=== PATIENT | male | born 1980 | race Two or more races ===

== ENCOUNTER 2024-08-08 19:48 | Inpatient (IN) | payer MEDICAID, OTHER ==
[~2024-08-08] VITALS: Ht 177.8 cm; Wt 338.0 kg
[2024-08-08] MEDS: SODIUM CHLORIDE 0.9% 1,000 ML IV ONE ×2 (21:00→23:48)
[2024-08-08 21:10] VITALS: PULSE 121; RESP 25; O2SAT 96
[2024-08-08 22:02] LABS: Basophils # (auto) 0 10 ^3/uL (0-0.2); Basophils % (auto) 0.2 % (0.0-2.0); Eosinophils # (auto) 0 10 ^3/uL (0-0.8); Hematocrit 40.6 % (41.0-53.0); Hemoglobin 13.1 g/dL (13.5-17.5); Lymphocytes # (auto) 0.3 10 ^3/uL (0.4-5.4); Mean Corpuscular Hemoglobin 24.4 pg (28.0-32.0); Mean Corpuscular Hgb Conc. 32.3 g/dL (32.0-36.0); Mean Corpuscular Volume 75.6 fL (80.0-100.0); Monocytes # (auto) 0.3 10 ^3/uL (0-1.3); Monocytes % (auto) 2.7 % (0.0-12.0); Neutrophils # (auto) 10.2 10 ^3/uL (1.6-8.6); Neutrophils % (auto) 94.1 % (37.0-80.0); Nucleated Red Blood Cells % 0.1 %; Platelet Count (auto) 163 10^3/uL (140-450); Red Blood Cells 5.37 10^6/uL (4.5-5.90); Red Cell Distribution Width 18.2 % (11.8-14.3); White Blood Cell 10.8 10^3/uL (4.4-10.8)
[2024-08-08 22:28] LABS: Urine Bacteria None Seen /hpf (None Seen)
[2024-08-08 22:37] LABS: Alanine Aminotransferase 35 U/L (7-40); Alkaline Phosphatase 65 U/L (46-116); Anion Gap 10 (5-15); BUN/Creatinine Ratio 9.3 (10.0-20.0); Blood Urea Nitrogen 11 mg/dL (9-23); Calcium 8.9 mg/dL (8.7-10.4); Carbon Dioxide 28 mmol/L (20-31); Total Protein 6.5 g/dL (5.7-8.2)
[2024-08-08 22:38] LABS: Bilirubin, Total 0.7 mg/dL (0.2-1.0)
[2024-08-08 22:40] LABS: Urine Blood 1+ /uL (Negative); Urine Clarity Clear (Clear); Urine Color Light-Yellow (Yellow); Urine Protein, UAD Negative (Negative); Urine Specific Gravity 1.014 (1.001-1.035); Urine Squamous Epithelial Cell None Seen /hpf (<5); Urine Urobilinogen Normal (Negative); Urine WBC 1 /HPF (0-3); Urine pH 5.5 (5.0-9.0)
[2024-08-08 22:42] LABS: Aspartate Aminotransferase 42 U/L (13-40); Chloride 94 mmol/L (98-107); Glucose 221 mg/dL (74-106); Potassium 3.4 mmol/L (3.5-5.1); Sodium 132 mmol/L (136-145)
[2024-08-08] MEDS: MORPHINE SULFATE 4 MG/ML SYR/VIAL IV ONE ×2 (22:46→23:48)
[2024-08-08] MEDS: ONDANSETRON HCL 4 MG/2 ML VIAL IV ONE (22:48)
[2024-08-08 23:05] LABS: Lactic Acid w/Reflex 3.7 mmol/L (0.4-2.0)
[2024-08-08] MEDS: MORPHINE SULFATE 4 MG/ML SYR/VIAL ONE (23:47)
--- NOTE | 2024-08-08 23:48 | ED.PDOC ---
Musculoskeletal HPI Comments 43-year-old male brought in by EMS. Patient complaining of right lower leg pain. Patient reports a history of cellulitis. History of lymphedema. States he was hospitalized for cellulitis two years ago. Patient does report a extensive history of allergies to medications. Patient reports intense pain over the last 2-3 days. Chief Complaint: Lower Extremity Time Seen by MD: 20:23 Reviewed Notes: Nurses Notes Allergies: Coded Allergies: Piperacillin (Verified Allergy, Unknown, 08/08/24) Sulfamethoxazole w/Trimethoprim (Verified Allergy, Unknown, 08/08/24) Tazobactam (Verified Allergy, Unknown, 08/08/24) Vancomycin (Verified Allergy, Unknown, 08/08/24) Information Source: Patient Mode of Arrival: EMS Location: Left Extremity Location: Leg Past Medical History PAST MEDICAL HISTORY: Denies Surgical History: Denies all surgeries Constitutional: denies: chills, diaphoresis, fatigue, fever, malaise, sweats, weakness, others EENTM: denies: blurred vision, double vision, ear bleeding, ear discharge, ear drainage, ear pain, ear ringing, eye pain, eye redness, hearing loss, mouth pain, mouth swelling, nasal discharge, nose bleeding, nose congestion, nose pain, photophobia, tearing, throat pain, throat swelling, voice changes, others Respiratory: denies: cough, hemoptysis, orthopnea, SOB at rest, shortness of breath, SOB with excertion, stridor, wheezing, others Cardiovascular: denies: chest pain, dizzy spells, diaphoresis, Dyspnea on exertion, edema, irregular heart beat, left arm pain, lightheadedness, palpitations, PND, syncope, others Gastrointestinal: denies: abdomen distended, abdominal pain, blood streaked bowels, constipated, diarrhea, dysphagia, difficulty swallowing, hematemesis, melena, nausea, poor appetite, poor fluid intake, rectal bleeding, rectal pain, vomiting, others Genitourinary: denies: burning, dysuria, flank pain, frequency, hematuria, incontinence, penile discharge, penile sore, pain, testicle pain, testicle swelling, urgency, others Neurological: denies: dizziness, fainting, headache, left sided numbness, left sided weakness, numbness, paresthesia, pre-existing deficit, right sided numbness, right sided weakness, seizure, speech problems, tingling, tremors, weakness, others Musculoskeletal: reports: muscle pain, muscle stiffness; denies: back pain, gout, joint pain, joint swelling, neck pain, others Integumetry: reports: wounds; denies: bruises, change in color, change in hair/nails, dryness, laceration, lesions, lumps, rash, others Allergic/Immunocompromised: denies: Difficulty Healing, Frequent Infections, Hives, Itching, others Hematologic/Lymphatic: denies: anemia, blood clots, easy bleeding, easy bruising, swollen glands, others Endocrine: denies: excessive hunger, excessive sweating, excessive thirst, excessive urination, flushing, intolerance to cold, intolerance to heat, unexplained weight gain, unexplained weight loss, others Physical Exam General Appearance: Obese, Severe Distress HEENT: Normal ENT Inspection, Pharynx Normal, TMs Normal Neck: Full Range of Motion, Non-Tender, Normal, Normal Inspection Respiratory: Chest Non-Tender, Lungs Clear, No Accessory Muscle Use, No Respiratory Distress, Normal Breath Sounds Cardiovascular: No Edema, No JVD, No Murmur, No Gallop, Normal Peripheral Pulses, Regular Rate/Rhythm Breast Exam: Deferred Gastrointestinal: No Organomegaly, Non Tender, No Pulsatile Mass, Normal Bowel Sounds, Soft Genitalia: Deferred Pelvic: Deferred Rectal: Deferred Extremities: No calf tenderness, Normal capillary refill, Normal inspection, Normal range of motion, Non-tender, No pedal edema Musculoskeletal : Apperance: Normal Neurologic: Alert, 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 Was a procedure done?: No Differential Diagnosis EXT Differential Diagnosis: Cellulitis, CHF, Deep Vein Thrombosis, Compartment Syndrome, Neurovascular injury X-Ray, Labs, Meds, VS Vital Signs Date Time Temp Pulse Resp B/P (MAP) Pulse Ox O2 Delivery O2 Flow Rate FiO2 08/08/24 22:46 122 24 135/45 08/08/24 21:10 96 Nasal Cannula* 4 36 08/08/24 20:09 99.3 120 20 110/73 (85) 95 Lab Test 2/25/25 22:28 08/08/24 21:40 Range/Units Urine Color Light-yellow Yellow Urine Clarity Clear Clear Urine pH 5.5 5.0-9.0 Urine Specific [place] 1.014 1.001-1.035 Urine Protein Negative Negative Urine Ketones Negative Negative Urine Blood 1+ H Negative /uL Urine Nitrite Negative Negative Urine Bilirubin Negative Negative Urine Urobilinogen Normal Negative mg/dL Urine Leukocyte Esterase Negative Negative /uL Urine RBC 1 0 - 3 /hpf Urine Microscopic WBC 1 0-3 /HPF Urine Squamous Epithelial Cells None seen <5 /hpf Urine Bacteria None seen None Seen /hpf Urine Glucose Normal Normal mg/dL White Blood Count 10.8 4.4-10.8 10^3/uL Red Blood Count 5.37 4.5-5.90 10^6/uL Hemoglobin 13.1 L 13.5-17.5 g/dL Hematocrit 40.6 L 41.0-53.0 % Mean Corpuscular Volume 75.6 L 80.0-100.0 fL Mean Corpuscular Hemoglobin 24.4 L 28.0-32.0 pg Mean Corpuscular Hemoglobin Concent 32.3 32.0-36.0 g/dL Red Cell Distribution Width 18.2 H 11.8-14.3 % Platelet Count 163 140-450 10^3/uL Mean Platelet Volume 8.2 6.9-10.8 fL Neutrophils (%) (Auto) 94.1 H 37.0-80.0 % Lymphocytes (%) (Auto) 3.0 L 10.0-50.0 % Monocytes (%) (Auto) 2.7 0.0-12.0 % Eosinophils (%) (Auto) 0.0 0.0-7.0 % Basophils (%) (Auto) 0.2 0.0-2.0 % Neutrophils # (Auto) 10.2 H 1.6-8.6 10 ^3/uL Lymphocytes # (Auto) 0.3 L 0.4-5.4 10 ^3/uL Monocytes # (Auto) 0.3 0-1.3 10 ^3/uL Eosinophils # (Auto) 0 0-0.8 10 ^3/uL Basophils # (Auto) 0 0-0.2 10 ^3/uL Nucleated Red Blood Cells 0.1 % Sodium Level 132 L 136-145 mmol/L Potassium Level 3.4 L 3.5-5.1 mmol/L Chloride Level 94 L 98-107 mmol/L Carbon Dioxide Level 28 20-31 mmol/L Anion Gap 10 5-15 Blood Urea Nitrogen 11 9-23 mg/dL Creatinine 1.18 0.700-1.30 mg/dL Glomerular Filtration Rate Calc 79 >90 mL/min BUN/Creatinine Ratio 9.3 L 10.0-20.0 Serum Glucose 221 H 74-106 mg/dL Lactic Acid Level 3.7 *H 0.4-2.0 mmol/L Calcium Level 8.9 8.7-10.4 mg/dL Total Bilirubin 0.7 0.2-1.0 mg/dL Aspartate Amino Transferase (AST) 42 H 13-40 U/L Alanine Aminotransferase (ALT) 35 7-40 U/L Alkaline Phosphatase 65 46-116 U/L Total Protein 6.5 5.7-8.2 g/dL Albumin 4.0 3.2-4.8 g/dL Current Medications Medications (Trade) Dose Ordered Sig/Nadia Route Start Time Stop Time Status Last Admin Sodium Chloride 1,000 ml @ 1,000 mls/hr Q1H ONCE IV 08/08/24 21:00 08/08/24 21:59 DC 08/08/24 21:00 Morphine Sulfate 4 mg ONCE ONCE IV 08/08/24 22:30 08/08/24 22:31 DC 08/08/24 22:46 Ondansetron HCl (Zofran) 4 mg ONCE ONCE IV 08/08/24 22:30 08/08/24 22:31 DC 08/08/24 22:48 X-Ray, Labs, Meds, VS Comment Patient will be admitted for IV antibiotic treatment for sepsis and cellulitis of the right lower extremity. Patient will be started on Cipro Patient given 2 L IV bolus Laboratory: Labs reviewed and interpreted by this provider. Patient has prior medical visits reviewed. Med reconciliation performed Vital signs reviewed Time of 1ST Reevaluation: 23:48 Reevaluation 1ST: Unchanged Patient Education/Counseling: Diagnosis, Treatment Family Education/Counseling: Diagnosis Departure 1 Departure Time of Disposition: 23:47 Impression: Primary Impression: Cellulitis of right leg Additional Impression: Sepsis Qualified Codes: A41.9 - Sepsis, unspecified organism Disposition: ADMITTED INPATIENT Condition: Guarded Critical Care Note Critical Care Time?: No Stability Stability form required: No Heart Score Heart Score: Heart Score Response (Comments) Value History N/A 0 EKG N/A 0 Age N/A 0 Risk Factors N/A 0 Troponin N/A 0 Total 0 RENETTA CARL Aug 08, 2024 23:48
[2024-08-09] MEDS: CIPROFLOXACIN 400MG/200ML 200 ML IV ONE (00:03)
[2024-08-09] MEDS: SODIUM CHLORIDE 0.9% 1,000 ML IV ONE ×2 (00:45→09:45)
[2024-08-09] MEDS: SODIUM CHLORIDE 0.9% 2,200 ML IV ONE (00:45)
[2024-08-09] MEDS: MEROPENEM 1GM IVPB 50 ML IV ONE (01:00)
--- NOTE | 2024-08-09 02:16 | DVH ---
Clinical History: rule out dvt Comparison: None Technique: Duplex Doppler evaluation of the deep venous system of the left lower extremity from the common femor al vein to the popliteal vein including color Doppler and spectral/pulsed waveform analysis was perfo rmed. Findings: The common femoral vein demonstrates appropriate compressibility and waveform variability. There is compressibility/patency of the great saphenous vein at the proximal thigh. The femoral vein demonstrates appropriate compressibility and waveform variability. The deep femoral vein demonstrates appropriate compressibility and waveform variability. The popliteal vein demonstrates appropriate compressibility and waveform variability. There is normal compressibility at the tibioperoneal trunk. In the right popliteal fossa there is an elongated complex avascular hypoechoic lesion measuring 4.1 x 5.6 x 1.5 cm compatible with a Pickett's cyst. Subcutaneous edema is noted in the calf area. Impression: 1. No left deep venous thrombosis. 2. If clinical concern/symptoms persist or worsen, short-interval follow-up study is suggested. 3. 4.1 x 5.6 x 1.5 cm pickett's cyst in the right popliteal fossa.
[2024-08-09] MEDS: MORPHINE SULFATE INJ 2 MG/ml SYRG IV PRN ×2 (02:40→12:05)
[2024-08-09] MEDS: DAPTOMYCIN IV SCH ×2 (03:00→14:21)
[2024-08-09] MEDS: SODIUM CHL 0.9% IV SCH ×2 (03:00→14:21)
[2024-08-09] MEDS: MORPHINE SULFATE INJ 2 MG/ml SYRG IV ONE (05:28)
[2024-08-09] MEDS: ONDANSETRON HCL 4 MG/2 ML VIAL ONE (05:29)
[2024-08-09] MEDS ORDERED: ACETAMINOPHEN 325 MG TAB PO PRN (07:45)
[2024-08-09] MEDS ORDERED: DOCUSATE SOD 100 MG CAP PO PRN (07:45)
--- NOTE | 2024-08-09 08:10 | DVHHPRES ---
History of Present Illness Resident Creating Document: TIERNEY JACOBSON RESIDENT Reason for Visit: sepsis History of Present Illness A 43-year-old male with a history of lymphedema for 12 years, reportedly due to a chronic infection, poor historian . He experiences recurrent episodes of cellulitis, occurring 2 to 4 times per year. He has an extensive history of medication allergies and reports intense pain in the affected area. He also has a history of diabetes, with a blood sugar level of 200 on presentation, though he is not on any home medications for it. Past Medical History: Lymphedema (12 years) Recurrent cellulitis (24 episodes per year) Diabetes mellitus Medications: None reported for diabetes Allergies: Extensive medication allergies Review of Systems Constitutional: No: Fever, Chills, Sweats, Weakness, Malaise, Other Eyes: No: Pain, Vision change, Conjunctivae inflammation, Eyelid inflammation, Other, Redness ENT: No: Ear pain, Ear discharge, Nose pain, Nose discharge, Nose congestion, Mouth pain, Mouth swelling, Throat pain, Throat swelling, Other Respiratory: No: Cough, Dry, Shortness of breath, SOB with excertion, Wheezing, Hemoptysis, Pleuritic Pain, Sputum, Wheezing, Other Cardiovascular: No: Chest Pain, Palpitations, Orthopnea, Paroxysmal Noc. Dyspnea, Edema, Lt Headedness, Other Gastrointestinal: No: Nausea, Vomiting, Abdominal Pain, Diarrhea, Constipation, Melena, Hematochezia, Other Genitourinary: No Dysuria, No Frequency, No Incontinence, No Hematuria, No Retention, No Other Musculoskeletal: leg pain; No: other, neck pain, shoulder pain, arm pain, back pain, hand pain, foot pain Skin: Lesions; No: Rash, Jaundice, Bruising, Other Neurological: No: Weakness, Numbness, Incoordination, Change in speech, Confusion, Seizures, Other Allergies: Coded Allergies: Piperacillin (Verified Allergy, Unknown, 08/08/24) Sulfamethoxazole w/Trimethoprim (Verified Allergy, Unknown, 08/08/24) Tazobactam (Verified Allergy, Unknown, 08/08/24) Vancomycin (Verified Allergy, Unknown, 08/08/24) Medications Current Medications Medications Dose Ordered Sig/Nadia Route Start Time Stop Time Status Last Admin Dose Admin Daptomycin / Sodium Chloride 50 ml @ 100 mls/hr DAILY IV 08/09/24 10:00 UNV Meropenem 50 ml @ 17 mls/hr Q8H IV 08/09/24 08:00 Morphine Sulfate 2 mg Q6HPRN PRN IV 08/09/24 02:15 08/09/24 02:40 2 MG Daptomycin 1400 mg/Sodium Chloride 50 ml @ 100 mls/hr Q24H IV 08/09/24 07:30 Sodium Chloride 10 ml Q8HR IV 08/09/24 14:00 UNV Acetaminophen/ Hydrocodone Bitart 1 tab Q4HP PRN PO 08/09/24 07:45 UNV Ondansetron HCl 4 mg Q4HP PRN IV 08/09/24 07:45 UNV Docusate Sodium 100 mg BIDPRN PRN PO 08/09/24 07:45 UNV Acetaminophen 650 mg Q6HP PRN PO 08/09/24 07:45 UNV Morphine Sulfate 2 mg Q4HPRN PRN IV 08/09/24 07:45 UNV Exam Vital Signs Vital Signs Date Time Temp Pulse Resp B/P (MAP) Pulse Ox O2 Delivery O2 Flow Rate FiO2 08/09/24 06:01 122 20 102/46 08/09/24 02:50 95 08/09/24 00:50 97.9 97.9 08/08/24 21:10 Nasal Cannula* 4 36 General Appearance: Alert, moderate distress HEENT: PERRLA, EOMI Respiratory: Clear to auscultation Cardiovascular: Other (tachycardic) Abdominal: Soft Extremities: Other (elephantasis in the right leg, with tenderness, redness, no palpable pulses ) Labs/Xrays Labs Test 08/08/24 23:48 08/08/24 22:28 08/08/24 21:40 Range/Units Lactic Acid Level 3.3 *H 0.4-2.0 mmol/L Urine Color Light-yellow Yellow Urine Clarity Clear Clear Urine pH 5.5 5.0-9.0 Urine Specific [place] 1.014 1.001-1.035 Urine Protein Negative Negative Urine Ketones Negative Negative Urine Blood 1+ H Negative /uL Urine Nitrite Negative Negative Urine Bilirubin Negative Negative Urine Urobilinogen Normal Negative mg/dL Urine Leukocyte Esterase Negative Negative /uL Urine RBC 1 0 - 3 /hpf Urine Microscopic WBC 1 0-3 /HPF Urine Squamous Epithelial Cells None seen <5 /hpf Urine Bacteria None seen None Seen /hpf Urine Glucose Normal Normal mg/dL White Blood Count 10.8 4.4-10.8 10^3/uL Red Blood Count 5.37 4.5-5.90 10^6/uL Hemoglobin 13.1 L 13.5-17.5 g/dL Hematocrit 40.6 L 41.0-53.0 % Mean Corpuscular Volume 75.6 L 80.0-100.0 fL Mean Corpuscular Hemoglobin 24.4 L 28.0-32.0 pg Mean Corpuscular Hemoglobin Concent 32.3 32.0-36.0 g/dL Red Cell Distribution Width 18.2 H 11.8-14.3 % Platelet Count 163 140-450 10^3/uL Mean Platelet Volume 8.2 6.9-10.8 fL Neutrophils (%) (Auto) 94.1 H 37.0-80.0 % Lymphocytes (%) (Auto) 3.0 L 10.0-50.0 % Monocytes (%) (Auto) 2.7 0.0-12.0 % Eosinophils (%) (Auto) 0.0 0.0-7.0 % Basophils (%) (Auto) 0.2 0.0-2.0 % Neutrophils # (Auto) 10.2 H 1.6-8.6 10 ^3/uL Lymphocytes # (Auto) 0.3 L 0.4-5.4 10 ^3/uL Monocytes # (Auto) 0.3 0-1.3 10 ^3/uL Eosinophils # (Auto) 0 0-0.8 10 ^3/uL Basophils # (Auto) 0 0-0.2 10 ^3/uL Nucleated Red Blood Cells 0.1 % D-Dimer, Quantitative 3.86 H 0.0-0.49 mg/L FEU Sodium Level 132 L 136-145 mmol/L Potassium Level 3.4 L 3.5-5.1 mmol/L Chloride Level 94 L 98-107 mmol/L Carbon Dioxide Level 28 20-31 mmol/L Anion Gap 10 5-15 Blood Urea Nitrogen 11 9-23 mg/dL Creatinine 1.18 0.700-1.30 mg/dL Glomerular Filtration Rate Calc 79 >90 mL/min BUN/Creatinine Ratio 9.3 L 10.0-20.0 Serum Glucose 221 H 74-106 mg/dL Calcium Level 8.9 8.7-10.4 mg/dL Total Bilirubin 0.7 0.2-1.0 mg/dL Aspartate Amino Transferase (AST) 42 H 13-40 U/L Alanine Aminotransferase (ALT) 35 7-40 U/L Alkaline Phosphatase 65 46-116 U/L Total Protein 6.5 5.7-8.2 g/dL Albumin 4.0 3.2-4.8 g/dL Assessment/Plan Assessment/Plan #Sepsis due to severe cellulitis in the right leg #Rule out necrotizing fascitis? #Severe lymphedema - elephantiasis #Acute respiratory failure #Rule out PE Patient need transfer to high level of care to further care. Upon arrival, the patient was tachycardic and tachypneic. Given the need for surgical evaluation and higher-level resources, including imaging and potential procedures, admission to this facility is not feasible due to the lack of a bariatric CT scanner and appropriate surgical support (bariatric OR bed). Transfer to high level of care O2 2 lt D Dimer is elevated Daptomycin + meropenem due to sepsis Enoxaparin BID SC IV fluids Case discussed with Dr Vicente Plan discussed with: Patient, Other (rn) My Orders Orders - TIERNEY JACOBSON RESIDENT Procedure Category Date Status Time Meropenem 1gm Ivpb PHA 08/09/24 In Process (Merrem 1gm/ Ns) 08:00 Sodium Chloride 0.9% PHA 08/09/24 In Process 00:45 Rt Lower Dvt US 08/09/24 Resulted 00:44 Potassium Chloride PHA 08/09/24 In Process (Potassium Chloride). 08:00 Morphine Sulfate PHA 08/09/24 In Process Injection 02:15 Daptomycin (Cubicin) PHA 08/09/24 In Process 07:30 Date of Service: Aug 08, 2024 Billing Provider: BACILIO VICENTE MD Consultation Codes: [id number] CONSULT <80MIN TIERNEY JACOBSON Aug 09, 2024 08:10 BACILIO VICENTE MD Aug 09, 2024 14:47
[2024-08-09 09:00] VITALS: PULSE 109; RESP 24; O2SAT 96
[2024-08-09] MEDS ORDERED: DAPTOmycin 0 MG in SODIUM CHL 0.9% 50 ML IV SCH (10:00)
[2024-08-09] MEDS ORDERED: DAPTOMYCIN IV SCH (10:00)
[2024-08-09] MEDS ORDERED: SODIUM CHL 0.9% IV SCH (10:00)
[2024-08-09 10:45] LABS: Basophils # (auto) 0 10 ^3/uL (0-0.2); Eosinophils # (auto) 0 10 ^3/uL (0-0.8); Monocytes # (auto) 0.5 10 ^3/uL (0-1.3); Nucleated Red Blood Cells % 0.1 %; Red Blood Cells 5.52 10^6/uL (4.5-5.90); Red Cell Distribution Width 18.4 % (11.8-14.3)
[2024-08-09 10:50] LABS: Basophils % (auto) 0.4 % (0.0-2.0); Eosinophils % (auto) 0.2 % (0.0-7.0); Hematocrit 41.3 % (41.0-53.0); Hemoglobin 13.1 g/dL (13.5-17.5); Lymphocytes # (auto) 0.5 10 ^3/uL (0.4-5.4); Lymphocytes % (auto) 4.4 % (10.0-50.0); Mean Corpuscular Hemoglobin 23.8 pg (28.0-32.0); Mean Corpuscular Hgb Conc. 31.7 g/dL (32.0-36.0); Mean Corpuscular Volume 74.9 fL (80.0-100.0); Monocytes % (auto) 4.1 % (0.0-12.0); Neutrophils # (auto) 10.1 10 ^3/uL (1.6-8.6); Neutrophils % (auto) 90.9 % (37.0-80.0); Platelet Count (auto) 149 10^3/uL (140-450); White Blood Cell 11.1 10^3/uL (4.4-10.8)
[2024-08-09 11:09] LABS: Alanine Aminotransferase 27 U/L (7-40); Albumin 3.6 g/dL (3.2-4.8); Alkaline Phosphatase 71 U/L (46-116); Anion Gap 7 (5-15); Aspartate Aminotransferase 35 U/L (13-40); Blood Urea Nitrogen 12 mg/dL (9-23); Calcium 8.9 mg/dL (8.7-10.4); Carbon Dioxide 30 mmol/L (20-31)
[2024-08-09 11:10] LABS: Bilirubin, Total 0.8 mg/dL (0.2-1.0)
[2024-08-09 11:16] LABS: Chloride 94 mmol/L (98-107); Glucose 193 mg/dL (74-106); Potassium 3.3 mmol/L (3.5-5.1); Sodium 131 mmol/L (136-145)
[2024-08-09] MEDS: ENOXAPARIN SOD 100 MG/1 ML SYRINGE SC SCH (12:03)
[2024-08-09] MEDS: ONDANSETRON HCL 4 MG/2 ML VIAL IV PRN (12:04)
[2024-08-09] MEDS: MEROPENEM 1GM IVPB 50 ML IV SCH (12:10)
[2024-08-09] MEDS: POTASSIUM CHLORIDE 20 MEQ, LIDOCAINE 1% (LOCAL ANESTH.) 2 ML in SODIUM CHL 0.9% 100 ML IV ONE (12:12)
[2024-08-09] MEDS: SODIUM CHLOR 0.9% PF (SALINE LOCK) 10ML VIAL/SYR IV SCH (14:21)
--- NOTE | 2024-08-09 16:18 | DVHHP2 ---
Review of Systems Allergies: Coded Allergies: Piperacillin (Verified Allergy, Unknown, 08/08/24) Sulfamethoxazole w/Trimethoprim (Verified Allergy, Unknown, 08/08/24) Tazobactam (Verified Allergy, Unknown, 08/08/24) Vancomycin (Verified Allergy, Unknown, 08/08/24) Medications Current Medications Medications Dose Ordered Sig/Nadia Route Start Time Stop Time Status Last Admin Dose Admin Daptomycin / Sodium Chloride 50 ml @ 100 mls/hr DAILY IV 08/09/24 10:00 UNV Meropenem 50 ml @ 17 mls/hr Q8H IV 08/09/24 08:00 08/09/24 12:10 17 MLS/HR Daptomycin 1400 mg/Sodium Chloride 50 ml @ 100 mls/hr Q24H IV 08/09/24 07:30 08/09/24 14:21 100 MLS/HR Sodium Chloride 10 ml Q8HR IV 08/09/24 14:00 08/09/24 14:21 10 ML Acetaminophen/ Hydrocodone Bitart 1 tab Q4HP PRN PO 08/09/24 07:45 Ondansetron HCl 4 mg Q4HP PRN IV 08/09/24 07:45 08/09/24 12:04 4 MG Docusate Sodium 100 mg BIDPRN PRN PO 08/09/24 07:45 Acetaminophen 650 mg Q6HP PRN PO 08/09/24 07:45 Morphine Sulfate 2 mg Q4HPRN PRN IV 08/09/24 07:45 08/09/24 12:05 2 MG Enoxaparin Sodium 110 mg Q12HR SC 08/09/24 09:00 08/09/24 12:12 110 MG Exam Vital Signs Vital Signs Date Time Temp Pulse Resp B/P (MAP) Pulse Ox O2 Delivery O2 Flow Rate FiO2 08/09/24 12:35 113 15 130/66 08/09/24 10:01 93 08/09/24 00:50 97.9 97.9 08/08/24 21:10 Nasal Cannula* 4 36 Labs/Xrays Labs Test 08/09/24 10:15 08/08/24 23:48 08/08/24 22:28 08/08/24 21:40 Range/Units White Blood Count 11.1 H 4.4-10.8 10^3/uL Red Blood Count 5.52 4.5-5.90 10^6/uL Hemoglobin 13.1 L 13.5-17.5 g/dL Hematocrit 41.3 41.0-53.0 % Mean Corpuscular Volume 74.9 L 80.0-100.0 fL Mean Corpuscular Hemoglobin 23.8 L 28.0-32.0 pg Mean Corpuscular Hemoglobin Concent 31.7 L 32.0-36.0 g/dL Red Cell Distribution Width 18.4 H 11.8-14.3 % Platelet Count 149 140-450 10^3/uL Mean Platelet Volume 8.6 6.9-10.8 fL Neutrophils (%) (Auto) 90.9 H 37.0-80.0 % Lymphocytes (%) (Auto) 4.4 L 10.0-50.0 % Monocytes (%) (Auto) 4.1 0.0-12.0 % Eosinophils (%) (Auto) 0.2 0.0-7.0 % Basophils (%) (Auto) 0.4 0.0-2.0 % Neutrophils # (Auto) 10.1 H 1.6-8.6 10 ^3/uL Lymphocytes # (Auto) 0.5 0.4-5.4 10 ^3/uL Monocytes # (Auto) 0.5 0-1.3 10 ^3/uL Eosinophils # (Auto) 0 0-0.8 10 ^3/uL Basophils # (Auto) 0 0-0.2 10 ^3/uL Nucleated Red Blood Cells 0.1 % Sodium Level 131 L 136-145 mmol/L Potassium Level 3.3 L 3.5-5.1 mmol/L Chloride Level 94 L 98-107 mmol/L Carbon Dioxide Level 30 20-31 mmol/L Anion Gap 7 5-15 Blood Urea Nitrogen 12 9-23 mg/dL Creatinine 1.00 0.700-1.30 mg/dL Glomerular Filtration Rate Calc 96 >90 mL/min BUN/Creatinine Ratio 12.0 10.0-20.0 Serum Glucose 193 H 74-106 mg/dL Calcium Level 8.9 8.7-10.4 mg/dL Total Bilirubin 0.8 0.2-1.0 mg/dL Aspartate Amino Transferase (AST) 35 13-40 U/L Alanine Aminotransferase (ALT) 27 7-40 U/L Alkaline Phosphatase 71 46-116 U/L Total Protein 6.0 5.7-8.2 g/dL Albumin 3.6 3.2-4.8 g/dL Lactic Acid Level 3.3 *H 0.4-2.0 mmol/L Urine Color Light-yellow Yellow Urine Clarity Clear Clear Urine pH 5.5 5.0-9.[address] [place] 1.014 1.001-1.035 Urine Protein Negative Negative Urine Ketones Negative Negative Urine Blood 1+ H Negative /uL Urine Nitrite Negative Negative Urine Bilirubin Negative Negative Urine Urobilinogen Normal Negative mg/dL Urine Leukocyte Esterase Negative Negative /uL Urine RBC 1 0 - 3 /hpf Urine Microscopic WBC 1 0-3 /HPF Urine Squamous Epithelial Cells None seen <5 /hpf Urine Bacteria None seen None Seen /hpf Urine Glucose Normal Normal mg/dL D-Dimer, Quantitative 3.86 H 0.0-0.49 mg/L FEU Assessment/Plan Assessment/Plan SEE DICTATED NOTE Plan discussed with: Patient My Orders Orders - ALINE GARBER MD Procedure Category Date Status Time Complete Blood Count LAB 08/10/24 Verified 06:00 Comprehensive LAB 08/10/24 Verified Metabolic Panel 06:00 Hemoglobin A1c LAB 08/10/24 Verified 06:00 Thyroid Stimulating LAB 08/10/24 Verified Hormone 05:00 Date of Service: Aug 09, 2024 Billing Provider: ALINE GARBER MD Common Visit Codes: [id number] INP/OBS CARE (HIGH) ALINE GARBER MD Aug 09, 2024 16:18
[2024-08-09] MEDS ORDERED: MORPHINE SULFATE INJ 2 MG/ml SYRG IV PRN ×2 (16:30→16:45)
[2024-08-09] MEDS ORDERED: NITROGLYCERIN 0.4 MG SL TAB SL PRN ×2 (16:30→16:45)
[2024-08-09] MEDS ORDERED: SODIUM CHLORIDE 0.9% 1,000 ML IV SCH (16:30)
--- NOTE | 2024-08-09 16:51 | DVHHP ---
ADMIT DATE: 08/08/2024 HISTORY OF PRESENT ILLNESS: The patient is a 43-year-old gentleman who came with a history of increasing redness and pain in the right lower extremity, going on for several days. The patient denies any definite fever. No nausea or vomiting. No shortness of breath. REVIEW OF SYSTEMS: Review of rest of systems are otherwise currently negative. PAST MEDICAL HISTORY: Significant for; * Recurrent cellulitis, especially in the right leg. * History of lymphedema. * Diabetes mellitus. * Hypertension. * DVT in the left leg. MEDICATIONS: Unknown at this time. ALLERGIES: TO SEVERAL ANTIBIOTICS LISTED IN THE RECORDS. SOCIAL HISTORY: Currently, lives in a group home facility. No history of smoking or alcohol. FAMILY HISTORY: Negative. PHYSICAL EXAMINATION: GENERAL: The patient is awake, alert. VITAL SIGNS: Temperature of 97.9, pulse of 113 per minute, blood pressure 115/66. SHEENT: Unremarkable. NECK: There is no JVD. EXTREMITIES: On examination of the right lower extremity, there is significant swelling with evidence of cellulitis going up to the thigh. The patient also has vesicles. LUNGS: Equal bilaterally. No added sounds. CARDIOVASCULAR SYSTEM: S1, S2 is regular, no murmurs. ABDOMEN: Soft. There is morbid obesity. NEUROLOGIC: Nonfocal. MUSCULOSKELETAL: Otherwise normal. ASSESSMENT AND PLAN: * Right leg cellulitis with sepsis. The patient will be placed on broad-spectrum antibiotics to include clindamycin, meropenem and Zyvox. A surgical consult will be obtained with Dr. Juarez. * Morbid obesity. * Diabetes mellitus, for which he will be placed on sliding scale insulin. * History of hypertension. * History of deep venous thrombosis, for which he will be placed on DVT prophylaxis. MD PAIGE Nova/GRECIA TID: [id number] RECEIPT: [id number]
[2024-08-09] MEDS: SODIUM CHLORIDE 0.9% 1,000 ML IV SCH (18:39)
[2024-08-09 19:49] VITALS: PULSE 113; RESP 29; O2SAT 97
[2024-08-09 23:00] VITALS: BP 127/74; PULSE 117; TEMP 98.6; O2SAT 94
[2024-08-10] VITALS (15 sets, daily range): BP systolic 106–155; BP diastolic 56–80; PULSE 70–117; RESP 17–22; TEMP 97.6–100.2; O2SAT 94–100
--- NOTE | 2024-08-10 11:23 | DVHPN2 ---
Progress Note Date Seen: Aug 10, 2024 Medical Necessity Reason Pt with a Central, PICC or Fol: No Subjective Patient reports: No new complaints Review of Systems: HEENT:Normal, CVS:Normal, RESPIRATORY:Normal, GI:Normal, :Normal, MSK:Normal, NEURO:Normal Objective vital signs Vital Sign Date Time Temp Pulse Resp B/P (MAP) Pulse Ox O2 Delivery O2 Flow Rate FiO2 08/10/24 11:06 107 96 30 08/10/24 10:49 18 116/62 08/10/24 09:00 97.6 97.6 08/10/24 08:00 Bi-Pap+ 0 Total Intake and Output 08/09/24 08/09/24 08/10/24 15:00 23:00 07:00 Intake Total 51 ml 1100 ml Output Total 2000 ml 1350 ml Balance -1949 ml -250 ml medications Current Medications Medications Dose Ordered Sig/Nadia Route Start Time Stop Time Status Last Admin Dose Admin Daptomycin / Sodium Chloride 50 ml @ 100 mls/hr DAILY IV 08/09/24 10:00 UNV Meropenem 50 ml @ 17 mls/hr Q8H IV 08/09/24 08:00 08/10/24 10:48 17 MLS/HR Daptomycin 1400 mg/Sodium Chloride 50 ml @ 100 mls/hr Q24H IV 08/09/24 07:30 08/10/24 10:47 100 MLS/HR Sodium Chloride 10 ml Q8HR IV 08/09/24 14:00 08/10/24 05:33 10 ML Acetaminophen/ Hydrocodone Bitart 1 tab Q4HP PRN PO 08/09/24 07:45 Ondansetron HCl 4 mg Q4HP PRN IV 08/09/24 07:45 08/09/24 12:04 4 MG Docusate Sodium 100 mg BIDPRN PRN PO 08/09/24 07:45 Acetaminophen 650 mg Q6HP PRN PO 08/09/24 07:45 Morphine Sulfate 2 mg Q4HPRN PRN IV 08/09/24 07:45 08/10/24 10:49 2 MG Enoxaparin Sodium 110 mg Q12HR SC 08/09/24 09:00 08/10/24 10:47 110 MG Morphine Sulfate 2 mg Q30M PRN IV 08/09/24 16:45 Nitroglycerin 0.4 mg Q5MINP PRN SL 08/09/24 16:45 Bumetanide 1 mg DAILY IV 08/11/24 10:00 UNV Potassium Chloride 20 meq DAILY PO 08/11/24 10:00 UNV Examination: GENERAL:Normal, HEENT:Normal, NECK:Normal, LUNGS:Normal, CVS:Normal, ABDOMEN:Normal, MSK:Normal, MSK:Abnormal (right leg cellulitis), SKIN:Normal, NEURO:Normal, :Normal laboratory and microbiology Laboratory Tests 08/09/24 10:15 Test 08/09/24 10:15 Range/Units Serum Glucose 193 H 74-106 mg/dL Microbiology Date/Time Source Procedure Growth Status 08/08/24 21:40 Blood Blood Culture - Preliminary NO GROWTH AFTER 24 HOURS OF INCUBATION. Resulted Problem List/Assessment/Plan Problem List/Assessment/Plan * Right leg cellulitis with sepsis. The patient will be placed on broad-spectrum antibiotics to include clindamycin, meropenem and dapto. A surgical consult will be obtained with Dr. Juarez. * Morbid obesity. * Diabetes mellitus, for which he will be placed on sliding scale insulin. * History of hypertension. * acute on chronic diastolic heart failure: bumex iv * History of deep venous thrombosis, for which he will be placed on DVT prophylaxis. * sleep apnea: bipap advance care planning- full code- time spent 19 mins Plan discussed with: Patient My Orders My Orders Orders - ALINE GARBER MD Procedure Category Date Status Time * Surgical Consult CONS 08/09/24 Transmitted Admit ADMIT 08/09/24 Transmitted 16:23 Stat Ekg For Chest LUIS 08/09/24 In Process Pain 16:23 Notify Md Of Changes LUIS 08/09/24 In Process From Base 16:23 Security Controls Assessor For LUIS 08/09/24 In Process 24 Hours 16:23 Emergency Dysrhythmia LUIS 08/09/24 In Process Protocol 16:23 Rhythm Strips Once LUIS 08/09/24 In Process Every Shift 16:23 Oxygen By Nasal RT 08/09/24 Transmitted Cannula 16:23 Morphine Sulfate PHA 08/09/24 In Process Injection 16:45 Nitroglycerin PHA 08/09/24 In Process Sublingual (Ntrostat 16:45 Pt Request For Service PT 08/10/24 Logged 11:09 Bumetanide Injection PHA 08/10/24 Logged (Bumex Injection) 11:30 Bumetanide Injection PHA 08/11/24 Logged (Bumex Injection) 10:00 Potassium Er Tablet PHA 08/10/24 Logged (Klor-Con Tablet) 11:30 Potassium Er Tablet PHA 08/11/24 Logged (Klor-Con Tablet) 10:00 Basic Metabolic Panel LAB 08/11/24 Verified 06:00 Complete Blood Count LAB 08/11/24 Verified 06:00 Hemoglobin A1c LAB 08/11/24 Verified 06:00 Date of Service: Aug 10, 2024 Billing Provider: ALINE GARBER MD Common Visit Codes: [id number] INP/OBS CARE(HIGH) Secondary Visit Codes: [id number] CARE PLAN 30 MINUTES ALINE GARBER MD Aug 10, 2024 11:23
[2024-08-10] MEDS: BUMETANIDE 1mg/4ml VIAL (0.25mg/ml) IV ONE (11:39)
[2024-08-10] MEDS: POTASSIUM CHL 20 Meq TABLET PO ONE (11:39)
[2024-08-10] MEDS ORDERED: DEXTROSE (50%) 50ML SYRG IV PRN (11:45)
[2024-08-10] MEDS: ACCU-CHEK COMFORT CURVE STRIP VI SCH (17:11)
[2024-08-10] MEDS: InsuLIN REG 1unit/0.01ml Soln (100units/ml) SC SCH ×2 (17:11→22:07)
--- NOTE | 2024-08-10 21:14 | DVHSR ---
APPROVED REPORT EXAM: LIMITED Two-dimensional and M-mode echocardiogram with Doppler and color Doppler. Blood Pressure: 117/64 mmHg INDICATION CHF RISK FACTORS Height: 70, Weight: 740 DIMENSIONS LVDd (3.8-5.7cm)LA (2D)5.1 (1.9-4.0cm)Aortic Root3.6 (2.0-3.7cm) LVDs (2.5-4.0cm)LA (MM) (1.9-4.0cm)Aortic Cusp Exc1.8 (1.5-2.0cm) EF (%) 50.0 (55-70%)Rt. Atrium (1.9-4.0cm)Asc. Aorta cm Mitral Valve MitralMitral Stenosis E/A ratio0.02D MVAcm2 DECEL TimemsPRESS 1/2 Vamy21bs IVRTmsDop MVA3.93cm2 Aortic Valve Aortic ValveAortic Stenosis V11.00m/Umesh Mean GR.4mmHg V21.64m/Umesh Peak GR.11mmHg LVOT Diameter2.3 (1.8-2.4cm)Doppler AVA2.53cm2 Other Information Technically limited study due to patient being 740 pounds. Patient laying on right side. Patient tung ble to turn. Conclusion Technically difficult study. Difficult acoustic windows. Mild left atrial enlargement. Mild LV enlargement. Valves appear to be structurally normal. Difficult to fully discern endocardial and valve structures . Left ventricular function appears preserved at 60% with normal RV function. Suboptimal Doppler. No apparent Doppler anomaly. No pericardial effusion masses or vegetations.
[2024-08-11] VITALS (8 sets, daily range): BP systolic 118–145; BP diastolic 56–75; PULSE 93–107; RESP 17–22; TEMP 97.1–98.2; O2SAT 20–99
[2024-08-11] MEDS ORDERED: METOCLOPRAMIDE HCL 5MG/ml INJ 2ml VIAL IV SCH
[2024-08-11] MEDS: METOCLOPRAMIDE HCL 5MG/ml INJ 2ml VIAL IV PRN (00:10)
[2024-08-11 07:34] LABS: Red Blood Cells 5.35 10^6/uL (4.5-5.90)
[2024-08-11 07:37] LABS: Hematocrit 40.1 % (41.0-53.0); Hemoglobin 12.6 g/dL (13.5-17.5); Mean Corpuscular Hemoglobin 23.6 pg (28.0-32.0); Mean Corpuscular Hgb Conc. 31.5 g/dL (32.0-36.0); Platelet Count (auto) 171 10^3/uL (140-450); Red Cell Distribution Width 18.6 % (11.8-14.3); White Blood Cell 10.2 10^3/uL (4.4-10.8)
[2024-08-11 07:45] LABS: Basophils % (manual) 0 (0.0-2.0); Blast Cells 0; Metamyelocytes % 0; Myelocytes % 0; Promyelocytes % 0; Reactive Lymphocytes 0
[2024-08-11 07:47] LABS: Anion Gap 8 (5-15); Carbon Dioxide 30 mmol/L (20-31)
[2024-08-11 07:48] LABS: Calcium 8.9 mg/dL (8.7-10.4)
[2024-08-11 07:52] LABS: Chloride 97 mmol/L (98-107); Potassium 3.3 mmol/L (3.5-5.1); Sodium 135 mmol/L (136-145)
[2024-08-11 07:53] LABS: BUN/Creatinine Ratio 11.8 (10.0-20.0)
[2024-08-11 07:54] LABS: Blood Urea Nitrogen 9 mg/dL (9-23); Glucose 242 mg/dL (74-106)
[2024-08-11 08:57] LABS: Band Neutrophils % (manual) 7; Eosinophils % (manual) 2 (0-7); Lymphocytes % (manual) 8 (10.0-50.0); Monocytes % (manual) 6 (0-12)
[2024-08-11 08:58] LABS: Hypochromia Moderate; Ovalocytes FEW; Platelet Estimate Adequate
[2024-08-11] MEDS: BUMETANIDE 1mg/4ml VIAL (0.25mg/ml) IV SCH (09:03)
[2024-08-11] MEDS: POTASSIUM CHL 20 Meq TABLET PO SCH (09:04)
--- NOTE | 2024-08-11 09:25 | ECG ---
[facility] Test Date: 2024-08-09 Test Time: 11:40:15 Pat Name: CYNDY HUGO Department: ER Room: 0202 Gender: M Rover Tender: JAGJTI : 1980 Requested By: RENETTA CARL Order Number: [id number] Reading MD: Matt Alexander Measurements Intervals [place] Rate: 112 P: 69 IN: 169 QRS: 31 QRSD: 80 T: 33 QT: 315 QTc: 430 Interpretive Statements Sinus tachycardia Low voltage, precordial leads Baseline wander in lead(s) V3 Electronically Signed On 08-12-2024 17:37:56 PST by Matt Alexander Please click the below link to view image of tracing.
--- NOTE | 2024-08-11 14:38 | DVHPN2 ---
Subjective laying flat, swelling improved, pending vascular eval Changes from previous H/P or p: No Changes Eyes: No Pain, No Vision change, No Conjunctivae inflammation, No Eyelid inflammation, No Other, No Redness ENT: No Ear pain, No Ear discharge, No Nose pain, No Nose discharge, No Nose congestion, No Mouth pain, No Mouth swelling, No Throat pain, No Throat swelling, No Other Cardiovascular: No Chest Pain, No Palpitations, No Orthopnea, No Paroxysmal Noc. Dyspnea, No Edema, No Lt Headedness, No Other Respiratory: No Cough, No Dry, No Shortness of breath, No SOB with excertion, No Wheezing, No Hemoptysis, No Pleuritic Pain, No Sputum, No Other Gastrointestinal: No Nausea, No Vomiting, No Abdominal Pain, No Diarrhea, No Constipation, No Melena, No Hematochezia, No Other Genitourinary: No Dysuria, No Frequency, No Incontinence, No Hematuria, No Retention, No Other Musculoskeletal: No other, No neck pain, No shoulder pain, No arm pain, No back pain, No hand pain; leg pain; No foot pain Skin: No Rash; Lesions; No Jaundice, No Bruising, No Other Objective Vitals Vital Signs Date Time Temp Pulse Resp B/P (MAP) Pulse Ox O2 Delivery O2 Flow Rate FiO2 08/11/24 14:20 101 18 101/74 08/11/24 13:00 97.1 99 97.1 08/11/24 07:34 Bi-Pap+ 0 100 100 Intake/Output Intake and Output 08/11/24 07:00 Intake Total 2708 ml Output Total 3900 ml Balance -1192 ml Intake Oral 2508 ml IV Total 200 ml Output Urine Total 3900 ml Medications Current Medications Medications Dose Ordered Sig/Nadia Route Start Time Stop Time Status Last Admin Dose Admin Daptomycin / Sodium Chloride 50 ml @ 100 mls/hr DAILY IV 08/09/24 10:00 UNV Meropenem 50 ml @ 17 mls/hr Q8H IV 08/09/24 08:00 08/11/24 07:56 17 MLS/HR Daptomycin 1400 mg/Sodium Chloride 50 ml @ 100 mls/hr Q24H IV 08/09/24 07:30 08/11/24 07:56 100 MLS/HR Sodium Chloride 10 ml Q8HR IV 08/09/24 14:00 08/11/24 14:20 10 ML Acetaminophen/ Hydrocodone Bitart 1 tab Q4HP PRN PO 08/09/24 07:45 Ondansetron HCl 4 mg Q4HP PRN IV 08/09/24 07:45 08/11/24 02:24 4 MG Docusate Sodium 100 mg BIDPRN PRN PO 08/09/24 07:45 Acetaminophen 650 mg Q6HP PRN PO 08/09/24 07:45 Morphine Sulfate 2 mg Q4HPRN PRN IV 08/09/24 07:45 08/11/24 14:20 2 MG Enoxaparin Sodium 110 mg Q12HR SC 08/09/24 09:00 08/11/24 09:05 110 MG Morphine Sulfate 2 mg Q30M PRN IV 08/09/24 16:45 Nitroglycerin 0.4 mg Q5MINP PRN SL 08/09/24 16:45 Bumetanide 1 mg DAILY IV 08/11/24 10:00 08/11/24 09:03 1 MG Potassium Chloride 20 meq DAILY PO 08/11/24 10:00 08/11/24 09:04 20 MEQ Diagnostic Test (Pha) 1 strip ACHS 08/10/24 17:00 08/11/24 11:30 1 STRIP Insulin Human Regular HS SC 08/10/24 22:00 08/10/24 22:07 6 UNITS Insulin Human Regular AC SC 08/10/24 17:00 08/11/24 13:29 6 UNITS Dextrose 50 ml UD PRN IV 08/10/24 11:45 Metoclopramide HCl 10 mg Q6HR PRN IV 08/11/24 00:15 08/11/24 14:20 10 MG Laboratory Results Laboratory Tests 08/11/24 06:53 Chemistry Test 08/11/24 06:53 Calcium Level 8.9 mg/dL (8.7-10.4) HgA1c, TSH Test 08/11/24 06:53 Hemoglobin A1c 6.9 % A1C (<5.7) H Urinalysis Test 08/08/24 22:28 Urine Color Light-yellow (Yellow) Urine Clarity Clear (Clear) Urine pH 5.5 (5.0-9.0) Urine Specific [place] 1.014 (1.001-1.035) Urine Protein Negative (Negative) Urine Ketones Negative (Negative) Urine Blood 1+ /uL (Negative) H Urine Nitrite Negative (Negative) Urine Bilirubin Negative (Negative) Urine Urobilinogen Normal mg/dL (Negative) Urine Leukocyte Esterase Negative /uL (Negative) Urine RBC 1 /hpf (0 - 3) Urine Microscopic WBC 1 /HPF (0-3) Urine Squamous Epithelial Cells None seen /hpf (<5) Urine Bacteria None seen /hpf (None Seen) Urine Glucose Normal mg/dL (Normal) Microbiology Microbiology Date/Time Source Procedure Growth Status 08/08/24 21:40 Blood Blood Culture - Preliminary NO GROWTH AFTER 48 HOURS OF INCUBATION. Resulted Assessment/Plan Assessment/Plan Right leg cellulitis with sepsis. The patient will be placed on broad-spectrum antibiotics to include clindamycin, meropenem and dapto. Vascular consult Morbid obesity Diabetes mellitus, for which he will be placed on sliding scale insulin History of hypertension acute on chronic diastolic heart failure: bumex iv switch to PO History of deep venous thrombosis Bipap at night full code diet diabetic dvt ppx lovenox Plan discussed with: Patient Date of Service: Aug 11, 2024 Billing Provider: MEHDI CAMPOVERDE MD Common Visit Codes: [id number] INP/OBS CARE(HIGH) MEHDI CAMPOVERDE MD Aug 11, 2024 14:38
[2024-08-11] MEDS: POTASSIUM EFFERVESENT TAB 25 MEQ PO ONE (14:45)
--- NOTE | 2024-08-11 16:33 | DVHINCON2 ---
Date of service: Aug 11, 2024 Family History: Diabetes during G8 MOTHER Diabetes mellitus G8 FATHER Allergies: Coded Allergies: Piperacillin (Verified Allergy, Unknown, 08/08/24) Sulfamethoxazole w/Trimethoprim (Verified Allergy, Unknown, 08/08/24) Tazobactam (Verified Allergy, Unknown, 08/08/24) Vancomycin (Verified Allergy, Unknown, 08/08/24) Current Medications Current Medications Medications (Trade) Dose Ordered Sig/Nadia Route PRN Reason Start Time Stop Time Status Last Admin Bumetanide (Bumex Injection) 1 mg DAILY IV 08/11/24 10:00 08/11/24 14:40 DC 08/11/24 09:03 Potassium Chloride (Klor-Con Tablet) 20 meq DAILY PO 08/11/24 10:00 08/11/24 09:04 Diagnostic Test (Pha) (Accu-Chek Comfort Curve T) 1 strip ACHS 08/10/24 17:00 08/11/24 11:30 Insulin Human Regular (InsuLIN R) HS SC 08/10/24 22:00 08/10/24 22:07 Insulin Human Regular (InsuLIN R) AC SC 08/10/24 17:00 08/11/24 13:29 Metoclopramide HCl (Reglan Injection) 10 mg Q6HR IV 08/11/24 00:00 08/11/24 00:01 DC Metoclopramide HCl (Reglan Injection) 10 mg Q6HR PRN IV NAUSEA / VOMITING 08/11/24 00:15 08/11/24 14:20 Bumetanide (Bumex Tablet) 1 mg DAILY PO 08/12/24 10:00 Insulin Glargine (Lantus) 10 units HS SC 08/11/24 22:00 Vital Signs Vital Signs Date Time Temp Pulse Resp B/P (MAP) Pulse Ox O2 Delivery O2 Flow Rate FiO2 08/11/24 14:20 101 18 101/74 08/11/24 13:00 97.1 99 97.1 08/11/24 07:34 Bi-Pap+ 0 100 100 Labs/Diagnostic Data Labs Test 08/11/24 13:07 08/11/24 06:53 08/09/24 10:15 08/08/24 23:48 Range/Units POC Glucose 228 H 70-106 mg/dl White Blood Count 10.2 4.4-10.8 10^3/uL Red Blood Count 5.35 4.5-5.90 10^6/uL Hemoglobin 12.6 L 13.5-17.5 g/dL Hematocrit 40.1 L 41.0-53.0 % Mean Corpuscular Volume 75.0 L 80.0-100.0 fL Mean Corpuscular Hemoglobin 23.6 L 28.0-32.0 pg Mean Corpuscular Hemoglobin Concent 31.5 L 32.0-36.0 g/dL Red Cell Distribution Width 18.6 H 11.8-14.3 % Platelet Count 171 140-450 10^3/uL Mean Platelet Volume 8.8 6.9-10.8 fL Neutrophils (%) (Auto) 37.0-80.0 % Lymphocytes (%) (Auto) 10.0-50.0 % Monocytes (%) (Auto) 0.0-12.0 % Basophils (%) (Auto) 0.0-2.0 % Neutrophils # (Auto) 1.6-8.6 10 ^3/uL Lymphocytes # (Auto) 0.4-5.4 10 ^3/uL Monocytes # (Auto) 0-1.3 10 ^3/uL Differential Total Cells Counted 100.0 100 Neutrophils % (Manual) 77 37.0-80.0 Band Neutrophils % (Manual) 7 Lymphocytes % (Manual) 8 L 10.0-50.0 Monocytes % (Manual) 6 0-12 Eosinophils % (Manual) 2 0-7 Basophils % (Manual) 0 0.0-2.0 Metamyelocytes % (manual) 0 Myelocytes % (Manual) 0 Promyelocytes % (Manual) 0 Blast Cells % (Manual) 0 Reactive Lymphocytes 0 Platelet Estimate Adequate Hypochromasia (manual) Moderate Microcytosis Slight Ovalocytes Few Sodium Level 135 L 136-145 mmol/L Potassium Level 3.3 L 3.5-5.1 mmol/L Chloride Level 97 L 98-107 mmol/L Carbon Dioxide Level 30 20-31 mmol/L Anion Gap 8 5-15 Blood Urea Nitrogen 9 9-23 mg/dL Creatinine 0.76 0.700-1.30 mg/dL Glomerular Filtration Rate Calc 115 >90 mL/min BUN/Creatinine Ratio 11.8 10.0-20.0 Serum Glucose 242 H 74-106 mg/dL Hemoglobin A1c 6.9 H <5.7 % A1C Calcium Level 8.9 8.7-10.4 mg/dL Eosinophils (%) (Auto) 0.2 0.0-7.0 % Eosinophils # (Auto) 0 0-0.8 10 ^3/uL Basophils # (Auto) 0 0-0.2 10 ^3/uL Nucleated Red Blood Cells 0.1 % Total Bilirubin 0.8 0.2-1.0 mg/dL Aspartate Amino Transferase (AST) 35 13-40 U/L Alanine Aminotransferase (ALT) 27 7-40 U/L Alkaline Phosphatase 71 46-116 U/L Total Protein 6.0 5.7-8.2 g/dL Albumin 3.6 3.2-4.8 g/dL Lactic Acid Level 3.3 *H 0.4-2.0 mmol/L Test 08/08/24 22:28 08/08/24 21:40 Range/Units Urine Color Light-yellow Yellow Urine Clarity Clear Clear Urine pH 5.5 5.0-9.0 Urine Specific [place] 1.014 1.001-1.035 Urine Protein Negative Negative Urine Ketones Negative Negative Urine Blood 1+ H Negative /uL Urine Nitrite Negative Negative Urine Bilirubin Negative Negative Urine Urobilinogen Normal Negative mg/dL Urine Leukocyte Esterase Negative Negative /uL Urine RBC 1 0 - 3 /hpf Urine Microscopic WBC 1 0-3 /HPF Urine Squamous Epithelial Cells None seen <5 /hpf Urine Bacteria None seen None Seen /hpf Urine Glucose Normal Normal mg/dL D-Dimer, Quantitative 3.86 H 0.0-0.49 mg/L FEU Microbiology Date/Time Source Procedure Growth Status 08/08/24 21:40 Blood Blood Culture - Preliminary NO GROWTH AFTER 48 HOURS OF INCUBATION. Resulted Assessment [id number] R LEG CELLULITIS / LYMPHEDEMA CLOSE OBSERVATION LEG ELEVATION OV ABX VASCULAR SURGERY EVAL TRANSFER TO HIGHER LEVEL OF CARE OIF SURGERY INDICATED AND CONSIDERED Plan discussed with: Patient RUPINDER LOZOYA MD Aug 11, 2024 16:33
--- NOTE | 2024-08-11 23:38 | DVHINCON2 ---
DATE OF CONSULTATION: 08/11/2024 HISTORY OF PRESENT ILLNESS: This patient is 43 years old, coming in with history of increasing redness and pain, right lower extremity going on for several days. He has had this for about two years and he was told he had lymphedema and somebody was managing that, but details are not clear. At this point, no shortness of breath. No nausea, vomiting. No hematemesis, melena. No bleeding per rectum. PAST MEDICAL HISTORY: Recurrent cellulitis placed in the right leg, history of lymphedema, diabetes, hypertension, DVT in the left leg. PAST SURGICAL HISTORY: Nothing available. PHYSICAL EXAMINATION: VITAL SIGNS: Afebrile, stable signs. HEENT: With no evidence of pallor, cyanosis, or jaundice. NECK: Supple, nontender with no thyromegaly, lymphadenopathy. CHEST AND LUNGS: Clear. HEART: Within normal limits. ABDOMEN: Not evaluated because of extreme morbid obesity. EXTREMITIES: Shows right leg lymphedema with a lot of swelling close to his ankle and possibility of cellulitis. NEUROLOGIC: Not assessed. CLINICAL IMPRESSION: Right leg cellulitis, rule out lymphedema and white cell count is within normal limits and there is a subcutaneous edema noted in the calf area on the Doppler evaluation of the left lower extremity. PLAN: The plan would be to keep him under close observation given intravenous antibiotics. No indication for urgent surgery. There is no abscess noted on the ultrasound or the venous Doppler study, at this point needs a close observation and transferred to higher level of care in case surgery is considered and indicated. MD SANAZ Villar/GRECIA TID: [id number] RECEIPT: [id number] cc: Tico Koehler MD
[2024-08-12] VITALS (11 sets, daily range): BP systolic 113–147; BP diastolic 62–79; PULSE 100–108; RESP 17–24; TEMP 97.7–99; O2SAT 92–99
[2024-08-12] MEDS: INSULIN LANTUS (GLARGINE) 1 /0.01ml (100units/ml) SC SCH (00:24)
[2024-08-12] MEDS: BUMETANIDE 1 MG TAB PO SCH (09:06)
--- NOTE | 2024-08-12 15:19 | DVHPN2 ---
Subjective laying flat, swelling improved but seeping. pending vascular consult. per ss patient might not be able to get transferred. if no surgical intervention, will do medical management and discahrge after Changes from previous H/P or p: No Changes Eyes: No Pain, No Vision change, No Conjunctivae inflammation, No Eyelid inflammation, No Other, No Redness ENT: No Ear pain, No Ear discharge, No Nose pain, No Nose discharge, No Nose congestion, No Mouth pain, No Mouth swelling, No Throat pain, No Throat swelling, No Other Cardiovascular: No Chest Pain, No Palpitations, No Orthopnea, No Paroxysmal Noc. Dyspnea, No Edema, No Lt Headedness, No Other Respiratory: No Cough, No Dry, No Shortness of breath, No SOB with excertion, No Wheezing, No Hemoptysis, No Pleuritic Pain, No Sputum, No Other Gastrointestinal: No Nausea, No Vomiting, No Abdominal Pain, No Diarrhea, No Constipation, No Melena, No Hematochezia, No Other Genitourinary: No Dysuria, No Frequency, No Incontinence, No Hematuria, No Retention, No Other Musculoskeletal: No other, No neck pain, No shoulder pain, No arm pain, No back pain, No hand pain; leg pain; No foot pain Skin: No Rash; Lesions; No Jaundice, No Bruising, No Other Objective Vitals Vital Signs Date Time Temp Pulse Resp B/P (MAP) Pulse Ox O2 Delivery O2 Flow Rate FiO2 08/12/24 13:50 108 22 124/66 08/12/24 13:00 99.0 92 99.0 08/12/24 08:00 Room Air* 0 100 21 Intake/Output Intake and Output 08/12/24 07:00 Intake Total 934 ml Output Total 3300 ml Balance -2366 ml Intake Oral 800 ml IV Total 134 ml Output Urine Total 3300 ml # Bowel Movements 2 Medications Current Medications Medications Dose Ordered Sig/Nadia Route Start Time Stop Time Status Last Admin Dose Admin Daptomycin / Sodium Chloride 50 ml @ 100 mls/hr DAILY IV 08/09/24 10:00 UNV Meropenem 50 ml @ 17 mls/hr Q8H IV 08/09/24 08:00 08/12/24 08:47 17 MLS/HR Daptomycin 1400 mg/Sodium Chloride 50 ml @ 100 mls/hr Q24H IV 08/09/24 07:30 08/12/24 08:45 100 MLS/HR Sodium Chloride 10 ml Q8HR IV 08/09/24 14:00 08/12/24 14:04 10 ML Acetaminophen/ Hydrocodone Bitart 1 tab Q4HP PRN PO 08/09/24 07:45 Ondansetron HCl 4 mg Q4HP PRN IV 08/09/24 07:45 08/11/24 21:13 4 MG Docusate Sodium 100 mg BIDPRN PRN PO 08/09/24 07:45 Acetaminophen 650 mg Q6HP PRN PO 08/09/24 07:45 Morphine Sulfate 2 mg Q4HPRN PRN IV 08/09/24 07:45 08/12/24 13:20 2 MG Enoxaparin Sodium 110 mg Q12HR SC 08/09/24 09:00 08/12/24 09:07 110 MG Morphine Sulfate 2 mg Q30M PRN IV 08/09/24 16:45 Nitroglycerin 0.4 mg Q5MINP PRN SL 08/09/24 16:45 Potassium Chloride 20 meq DAILY PO 08/11/24 10:00 08/12/24 09:06 20 MEQ Diagnostic Test (Pha) 1 strip ACHS 08/10/24 17:00 08/12/24 12:02 1 STRIP Insulin Human Regular HS SC 08/10/24 22:00 08/12/24 00:23 4 UNITS Insulin Human Regular AC SC 08/10/24 17:00 08/12/24 12:03 6 UNITS Dextrose 50 ml UD PRN IV 08/10/24 11:45 Metoclopramide HCl 10 mg Q6HR PRN IV 08/11/24 00:15 08/11/24 14:20 10 MG Bumetanide 1 mg DAILY PO 08/12/24 10:00 08/12/24 09:06 1 MG Insulin Glargine 10 units HS SC 08/11/24 22:00 08/12/24 00:24 10 UNITS Laboratory Results Laboratory Tests 08/11/24 06:53 Urinalysis Test 08/08/24 22:28 Urine Color Light-yellow (Yellow) Urine Clarity Clear (Clear) Urine pH 5.5 (5.0-9.0) Urine Specific [place] 1.014 (1.001-1.035) Urine Protein Negative (Negative) Urine Ketones Negative (Negative) Urine Blood 1+ /uL (Negative) H Urine Nitrite Negative (Negative) Urine Bilirubin Negative (Negative) Urine Urobilinogen Normal mg/dL (Negative) Urine Leukocyte Esterase Negative /uL (Negative) Urine RBC 1 /hpf (0 - 3) Urine Microscopic WBC 1 /HPF (0-3) Urine Squamous Epithelial Cells None seen /hpf (<5) Urine Bacteria None seen /hpf (None Seen) Urine Glucose Normal mg/dL (Normal) Microbiology Microbiology Date/Time Source Procedure Growth Status 08/08/24 21:40 Blood Blood Culture - Preliminary NO GROWTH AFTER 72 HOURS OF INCUBATION. Resulted Assessment/Plan Assessment/Plan Right leg cellulitis with sepsis. The patient will be placed on broad-spectrum antibiotics to include clindamycin, meropenem and dapto. Vascular consult Morbid obesity Diabetes mellitus, for which he will be placed on sliding scale insulin History of hypertension acute on chronic diastolic heart failure: bumex iv switch to PO History of deep venous thrombosis Bipap at night full code diet diabetic dvt ppx lovenox Plan discussed with: Patient Date of Service: Aug 12, 2024 Billing Provider: MEHDI CAMPOVERDE MD Common Visit Codes: [id number] INP/OBS CARE(HIGH) MEHDI CAMPOVERDE MD Aug 12, 2024 15:19
[2024-08-12] MEDS: HYDROcodone-ACET 5/325MG TAB PO PRN (17:39)
--- NOTE | 2024-08-12 17:52 | DVHPN2 ---
Progress Note Date Seen: Aug 12, 2024 Medical Necessity Reason Pt with a Central, PICC or Fol: No Objective vital signs Vital Sign Date Time Temp Pulse Resp B/P (MAP) Pulse Ox O2 Delivery O2 Flow Rate FiO2 08/12/24 17:00 98.2 101 24 113/78 (90) 97 98.2 08/12/24 08:00 Room Air* 0 100 21 Total Intake and Output 08/11/24 08/11/24 08/12/24 15:00 23:00 07:00 Intake Total 84 ml 850 ml Output Total 1300 ml 2000 ml Balance -1216 ml -1150 ml medications Current Medications Medications Dose Ordered Sig/Nadia Route Start Time Stop Time Status Last Admin Dose Admin Daptomycin / Sodium Chloride 50 ml @ 100 mls/hr DAILY IV 08/09/24 10:00 UNV Meropenem 50 ml @ 17 mls/hr Q8H IV 08/09/24 08:00 08/12/24 17:10 17 MLS/HR Daptomycin 1400 mg/Sodium Chloride 50 ml @ 100 mls/hr Q24H IV 08/09/24 07:30 08/12/24 08:45 100 MLS/HR Sodium Chloride 10 ml Q8HR IV 08/09/24 14:00 08/12/24 14:04 10 ML Acetaminophen/ Hydrocodone Bitart 1 tab Q4HP PRN PO 08/09/24 07:45 08/12/24 17:39 1 TAB Ondansetron HCl 4 mg Q4HP PRN IV 08/09/24 07:45 08/11/24 21:13 4 MG Docusate Sodium 100 mg BIDPRN PRN PO 08/09/24 07:45 Acetaminophen 650 mg Q6HP PRN PO 08/09/24 07:45 Morphine Sulfate 2 mg Q4HPRN PRN IV 08/09/24 07:45 08/12/24 13:20 2 MG Enoxaparin Sodium 110 mg Q12HR SC 08/09/24 09:00 08/12/24 09:07 110 MG Morphine Sulfate 2 mg Q30M PRN IV 08/09/24 16:45 Nitroglycerin 0.4 mg Q5MINP PRN SL 08/09/24 16:45 Potassium Chloride 20 meq DAILY PO 08/11/24 10:00 08/12/24 09:06 20 MEQ Diagnostic Test (Pha) 1 strip ACHS 08/10/24 17:00 08/12/24 17:38 1 STRIP Insulin Human Regular HS SC 08/10/24 22:00 08/12/24 00:23 4 UNITS Insulin Human Regular AC SC 08/10/24 17:00 08/12/24 17:42 3 UNITS Dextrose 50 ml UD PRN IV 08/10/24 11:45 Metoclopramide HCl 10 mg Q6HR PRN IV 08/11/24 00:15 08/11/24 14:20 10 MG Bumetanide 1 mg DAILY PO 08/12/24 10:00 08/12/24 09:06 1 MG Insulin Glargine 10 units HS SC 08/11/24 22:00 08/12/24 00:24 10 UNITS laboratory and microbiology Laboratory Tests 08/11/24 06:53 Test 08/11/24 06:53 Range/Units Serum Glucose 242 H 74-106 mg/dL Microbiology Date/Time Source Procedure Growth Status 08/08/24 21:40 Blood Blood Culture - Preliminary NO GROWTH AFTER 72 HOURS OF INCUBATION. Resulted Problem List/Assessment/Plan Problem List/Assessment/Plan AFEBRILE VSS R LEG CELLULITIS NO MATURE ABSCESS DIFFICULT EVAL SEC TO EXTENSIVE LYMPHEDEMA CONTINUE IV ABX CLOSE OBSERVATION LEG ELEVATION Plan discussed with: Patient Dietary Evaluation Review Recommendations by RD: Dietary education by RD Comments: 1) Add 60g CCHO restriction to cardiac diet order 2) Refer to outpatient RD/CDCES for weight management 3) Continue to monitor skin integrity Expected Outcomes/Goals: 1) appetite and labs to improve 2) wound to improve RUPINDER LOZOYA MD Aug 12, 2024 17:52
[2024-08-13] VITALS (9 sets, daily range): BP systolic 111–159; BP diastolic 61–84; PULSE 70–101; RESP 12–22; TEMP 97.6–98.8; O2SAT 93–98
--- NOTE | 2024-08-13 11:08 | DVHPN2 ---
Progress Note Date Seen: Aug 13, 2024 Medical Necessity Reason Pt with a Central, PICC or Fol: No Objective vital signs Vital Sign Date Time Temp Pulse Resp B/P (MAP) Pulse Ox O2 Delivery O2 Flow Rate FiO2 08/13/24 10:00 133/61 08/13/24 09:00 98.1 70 22 96 98.1 08/13/24 08:00 Bi-Pap+ 0 100 100 Total Intake and Output 08/12/24 08/12/24 08/13/24 15:00 23:00 07:00 Intake Total 100 ml 1625.5 ml 2000 ml Output Total 2450 ml 1600 ml Balance 100 ml -824.5 ml 400 ml medications Current Medications Medications Dose Ordered Sig/Nadia Route Start Time Stop Time Status Last Admin Dose Admin Daptomycin / Sodium Chloride 50 ml @ 100 mls/hr DAILY IV 08/09/24 10:00 UNV Meropenem 50 ml @ 17 mls/hr Q8H IV 08/09/24 08:00 08/13/24 09:48 17 MLS/HR Daptomycin 1400 mg/Sodium Chloride 50 ml @ 100 mls/hr Q24H IV 08/09/24 07:30 08/13/24 05:37 100 MLS/HR Sodium Chloride 10 ml Q8HR IV 08/09/24 14:00 08/13/24 05:04 10 ML Acetaminophen/ Hydrocodone Bitart 1 tab Q4HP PRN PO 08/09/24 07:45 08/12/24 17:39 1 TAB Ondansetron HCl 4 mg Q4HP PRN IV 08/09/24 07:45 08/11/24 21:13 4 MG Docusate Sodium 100 mg BIDPRN PRN PO 08/09/24 07:45 Acetaminophen 650 mg Q6HP PRN PO 08/09/24 07:45 Morphine Sulfate 2 mg Q4HPRN PRN IV 08/09/24 07:45 08/13/24 05:24 2 MG Enoxaparin Sodium 110 mg Q12HR SC 08/09/24 09:00 08/12/24 21:06 110 MG Morphine Sulfate 2 mg Q30M PRN IV 08/09/24 16:45 Nitroglycerin 0.4 mg Q5MINP PRN SL 08/09/24 16:45 Potassium Chloride 20 meq DAILY PO 08/11/24 10:00 08/13/24 10:55 20 MEQ Diagnostic Test (Pha) 1 strip ACHS 08/10/24 17:00 08/13/24 05:13 1 STRIP Insulin Human Regular HS SC 08/10/24 22:00 08/12/24 20:54 4 UNITS Insulin Human Regular AC SC 08/10/24 17:00 08/13/24 05:23 3 UNITS Dextrose 50 ml UD PRN IV 08/10/24 11:45 Metoclopramide HCl 10 mg Q6HR PRN IV 08/11/24 00:15 08/11/24 14:20 10 MG Bumetanide 1 mg DAILY PO 08/12/24 10:00 08/13/24 10:00 1 MG Insulin Glargine 10 units HS SC 08/11/24 22:00 08/12/24 20:55 10 UNITS laboratory and microbiology Laboratory Tests 08/11/24 06:53 Test 08/11/24 06:53 Range/Units Serum Glucose 242 H 74-106 mg/dL Microbiology Date/Time Source Procedure Growth Status 08/08/24 21:40 Blood Blood Culture - Preliminary NO GROWTH AFTER 72 HOURS OF INCUBATION. Resulted Problem List/Assessment/Plan Problem List/Assessment/Plan AFEBRILE VSS R LEG CELLULITIS IMPROVING NO MATURE ABSCESS DIFFICULT EVAL SEC TO EXTENSIVE LYMPHEDEMA CONTINUE IV ABX CLOSE OBSERVATION LEG ELEVATION INDICATED NURSE AT BEDSIDE Plan discussed with: Patient Dietary Evaluation Review Recommendations by RD: Dietary education by RD Comments: 1) Add 60g CCHO restriction to cardiac diet order 2) Refer to outpatient RD/CDCES for weight management 3) Continue to monitor skin integrity Expected Outcomes/Goals: 1) appetite and labs to improve 2) wound to improve RUPINDER LOZOYA MD Aug 13, 2024 11:08
--- NOTE | 2024-08-13 13:27 | DVHPN2 ---
Subjective laying flat, swelling improved but seeping. pending vascular consult. discussed with gen surg, patient not candidate for surgery and no abscess collection. will continue medical managemenet in the mean time, PT eval, OOBTC Changes from previous H/P or p: No Changes Eyes: No Pain, No Vision change, No Conjunctivae inflammation, No Eyelid inflammation, No Other, No Redness ENT: No Ear pain, No Ear discharge, No Nose pain, No Nose discharge, No Nose congestion, No Mouth pain, No Mouth swelling, No Throat pain, No Throat swelling, No Other Cardiovascular: No Chest Pain, No Palpitations, No Orthopnea, No Paroxysmal Noc. Dyspnea, No Edema, No Lt Headedness, No Other Respiratory: No Cough, No Dry, No Shortness of breath, No SOB with excertion, No Wheezing, No Hemoptysis, No Pleuritic Pain, No Sputum, No Other Gastrointestinal: No Nausea, No Vomiting, No Abdominal Pain, No Diarrhea, No Constipation, No Melena, No Hematochezia, No Other Genitourinary: No Dysuria, No Frequency, No Incontinence, No Hematuria, No Retention, No Other Musculoskeletal: No other, No neck pain, No shoulder pain, No arm pain, No back pain, No hand pain; leg pain; No foot pain Skin: No Rash; Lesions; No Jaundice, No Bruising, No Other Objective Vitals Vital Signs Date Time Temp Pulse Resp B/P (MAP) Pulse Ox O2 Delivery O2 Flow Rate FiO2 08/13/24 12:41 97.6 78 22 147/84 (105) 97 97.6 08/13/24 08:00 Bi-Pap+ 0 100 100 Intake/Output Intake and Output 08/13/24 07:00 Intake Total 3725.5 ml Output Total 4050 ml Balance -324.5 ml Intake Oral 3600 ml IV Total 125.5 ml Output Urine Total 4050 ml # Voids 3 # Bowel Movements 3 Medications Current Medications Medications Dose Ordered Sig/Nadia Route Start Time Stop Time Status Last Admin Dose Admin Daptomycin / Sodium Chloride 50 ml @ 100 mls/hr DAILY IV 08/09/24 10:00 UNV Meropenem 50 ml @ 17 mls/hr Q8H IV 08/09/24 08:00 08/13/24 09:48 17 MLS/HR Daptomycin 1400 mg/Sodium Chloride 50 ml @ 100 mls/hr Q24H IV 08/09/24 07:30 08/13/24 05:37 100 MLS/HR Sodium Chloride 10 ml Q8HR IV 08/09/24 14:00 08/13/24 05:04 10 ML Acetaminophen/ Hydrocodone Bitart 1 tab Q4HP PRN PO 08/09/24 07:45 08/12/24 17:39 1 TAB Ondansetron HCl 4 mg Q4HP PRN IV 08/09/24 07:45 08/11/24 21:13 4 MG Docusate Sodium 100 mg BIDPRN PRN PO 08/09/24 07:45 Acetaminophen 650 mg Q6HP PRN PO 08/09/24 07:45 Morphine Sulfate 2 mg Q4HPRN PRN IV 08/09/24 07:45 08/13/24 11:53 2 MG Enoxaparin Sodium 110 mg Q12HR SC 08/09/24 09:00 08/13/24 11:54 110 MG Morphine Sulfate 2 mg Q30M PRN IV 08/09/24 16:45 Nitroglycerin 0.4 mg Q5MINP PRN SL 08/09/24 16:45 Potassium Chloride 20 meq DAILY PO 08/11/24 10:00 08/13/24 10:55 20 MEQ Diagnostic Test (Pha) 1 strip ACHS 08/10/24 17:00 08/13/24 11:30 1 STRIP Insulin Human Regular HS SC 08/10/24 22:00 08/12/24 20:54 4 UNITS Insulin Human Regular AC SC 08/10/24 17:00 08/13/24 11:30 3 UNITS Dextrose 50 ml UD PRN IV 08/10/24 11:45 Metoclopramide HCl 10 mg Q6HR PRN IV 08/11/24 00:15 08/11/24 14:20 10 MG Bumetanide 1 mg DAILY PO 08/12/24 10:00 08/13/24 10:00 1 MG Insulin Glargine 10 units HS SC 08/11/24 22:00 08/12/24 20:55 10 UNITS Laboratory Results Laboratory Tests 08/11/24 06:53 Urinalysis Test 08/08/24 22:28 Urine Color Light-yellow (Yellow) Urine Clarity Clear (Clear) Urine pH 5.5 (5.0-9.0) Urine Specific [place] 1.014 (1.001-1.035) Urine Protein Negative (Negative) Urine Ketones Negative (Negative) Urine Blood 1+ /uL (Negative) H Urine Nitrite Negative (Negative) Urine Bilirubin Negative (Negative) Urine Urobilinogen Normal mg/dL (Negative) Urine Leukocyte Esterase Negative /uL (Negative) Urine RBC 1 /hpf (0 - 3) Urine Microscopic WBC 1 /HPF (0-3) Urine Squamous Epithelial Cells None seen /hpf (<5) Urine Bacteria None seen /hpf (None Seen) Urine Glucose Normal mg/dL (Normal) Microbiology Microbiology Date/Time Source Procedure Growth Status 08/08/24 21:40 Blood Blood Culture - Preliminary NO GROWTH AFTER 72 HOURS OF INCUBATION. Resulted Assessment/Plan Assessment/Plan Right leg cellulitis with sepsis. The patient will be placed on broad-spectrum antibiotics to include clindamycin, meropenem and dapto. Vascular consult Morbid obesity Diabetes mellitus, for which he will be placed on sliding scale insulin History of hypertension acute on chronic diastolic heart failure: bumex iv switch to PO History of deep venous thrombosis Bipap at night OOBTC PT eval full code diet diabetic dvt ppx lovenox Plan discussed with: Patient My Orders Orders - MEHDI CAMPOVERDE MD Procedure Category Date Status Time Cardiac DIET 08/12/24 Transmitted Diet-2gna,Lofat,Lochol Dinner Date of Service: Aug 13, 2024 Billing Provider: MEHDI CAMPOVERDE MD Common Visit Codes: [id number] INP/OBS CARE(HIGH) MEHDI CAMPOVERDE MD Aug 13, 2024 13:27
[2024-08-14] VITALS (11 sets, daily range): BP systolic 116–141; BP diastolic 62–75; PULSE 61–104; RESP 18–22; TEMP 97.6–98.4; O2SAT 95–100
[2024-08-14 07:42] LABS: Anion Gap 10 (5-15); Carbon Dioxide 29 mmol/L (20-31); Chloride 99 mmol/L (98-107); Sodium 138 mmol/L (136-145)
[2024-08-14 07:43] LABS: Calcium 8.8 mg/dL (8.7-10.4)
[2024-08-14 07:45] LABS: Potassium 3.3 mmol/L (3.5-5.1)
[2024-08-14 07:48] LABS: BUN/Creatinine Ratio 12.3 (10.0-20.0); Blood Urea Nitrogen 9 mg/dL (9-23); Glucose 146 mg/dL (74-106)
[2024-08-14 07:54] LABS: Basophils # (auto) 0.1 10 ^3/uL (0-0.2); Basophils % (auto) 0.6 % (0.0-2.0); Eosinophils # (auto) 0.2 10 ^3/uL (0-0.8); Eosinophils % (auto) 1.9 % (0.0-7.0); Hematocrit 40.3 % (41.0-53.0); Hemoglobin 12.6 g/dL (13.5-17.5); Lymphocytes # (auto) 2.1 10 ^3/uL (0.4-5.4); Lymphocytes % (auto) 23.4 % (10.0-50.0); Mean Corpuscular Hemoglobin 23.6 pg (28.0-32.0); Mean Corpuscular Hgb Conc. 31.3 g/dL (32.0-36.0); Mean Corpuscular Volume 75.3 fL (80.0-100.0); Monocytes # (auto) 0.4 10 ^3/uL (0-1.3); Monocytes % (auto) 3.9 % (0.0-12.0); Neutrophils # (auto) 6.3 10 ^3/uL (1.6-8.6); Neutrophils % (auto) 70.2 % (37.0-80.0); Nucleated Red Blood Cells % 0.4 %; Platelet Count (auto) 258 10^3/uL (140-450); Red Blood Cells 5.36 10^6/uL (4.5-5.90); Red Cell Distribution Width 18.6 % (11.8-14.3)
[2024-08-14] MEDS: DAPTOMYCIN IV SCH (09:30)
[2024-08-14] MEDS: SODIUM CHL 0.9% IV SCH (09:30)
--- NOTE | 2024-08-14 10:35 | DVHPN2 ---
Progress Note Date Seen: Aug 14, 2024 Medical Necessity Reason Pt with a Central, PICC or Fol: No Subjective Patient reports: No new complaints Review of Systems: HEENT:Normal, CVS:Normal, RESPIRATORY:Normal, GI:Normal, :Normal, MSK:Normal, NEURO:Normal Objective vital signs Vital Sign Date Time Temp Pulse Resp B/P (MAP) Pulse Ox O2 Delivery O2 Flow Rate FiO2 08/14/24 10:08 125/68 08/14/24 09:00 98.4 92 22 95 98.4 08/14/24 08:00 Room Air* 0 21 Total Intake and Output 08/13/24 08/13/24 08/14/24 15:00 23:00 07:00 Intake Total 1000 ml 1650 ml Output Total 3000 ml 800 ml 3200 ml Balance -3000 ml 200 ml -1550 ml medications Current Medications Medications Dose Ordered Sig/Nadia Route Start Time Stop Time Status Last Admin Dose Admin Daptomycin / Sodium Chloride 50 ml @ 100 mls/hr DAILY IV 08/09/24 10:00 UNV Meropenem 50 ml @ 17 mls/hr Q8H IV 08/09/24 08:00 08/14/24 08:12 17 MLS/HR Sodium Chloride 10 ml Q8HR IV 08/09/24 14:00 08/14/24 06:31 10 ML Acetaminophen/ Hydrocodone Bitart 1 tab Q4HP PRN PO 08/09/24 07:45 08/14/24 06:27 1 TAB Ondansetron HCl 4 mg Q4HP PRN IV 08/09/24 07:45 08/11/24 21:13 4 MG Docusate Sodium 100 mg BIDPRN PRN PO 08/09/24 07:45 Acetaminophen 650 mg Q6HP PRN PO 08/09/24 07:45 Morphine Sulfate 2 mg Q4HPRN PRN IV 08/09/24 07:45 08/14/24 08:13 2 MG Enoxaparin Sodium 110 mg Q12HR SC 08/09/24 09:00 08/14/24 10:02 110 MG Morphine Sulfate 2 mg Q30M PRN IV 08/09/24 16:45 Nitroglycerin 0.4 mg Q5MINP PRN SL 08/09/24 16:45 Potassium Chloride 20 meq DAILY PO 08/11/24 10:00 08/14/24 10:02 20 MEQ Diagnostic Test (Pha) 1 strip ACHS 08/10/24 17:00 08/14/24 06:27 1 STRIP Insulin Human Regular HS SC 08/10/24 22:00 08/13/24 22:16 3 UNITS Insulin Human Regular AC SC 08/10/24 17:00 08/14/24 06:31 2 UNITS Dextrose 50 ml UD PRN IV 08/10/24 11:45 Metoclopramide HCl 10 mg Q6HR PRN IV 08/11/24 00:15 08/11/24 14:20 10 MG Bumetanide 1 mg DAILY PO 08/12/24 10:00 08/14/24 10:08 1 MG Insulin Glargine 10 units HS SC 08/11/24 22:00 08/13/24 22:17 10 UNITS Daptomycin 1400 mg/Sodium Chloride 50 ml @ 100 mls/hr Q24H IV 08/14/24 09:30 08/14/24 11:30 Examination: GENERAL:Normal, HEENT:Normal, NECK:Normal, LUNGS:Normal, CVS:Normal, ABDOMEN:Normal, MSK:Normal, MSK:Abnormal (right leg cellulitis), SKIN:Normal, NEURO:Normal, :Normal laboratory and microbiology Laboratory Tests 08/14/24 06:21 Test 08/14/24 06:21 Range/Units Serum Glucose 146 H 74-106 mg/dL Microbiology Date/Time Source Procedure Growth Status 08/08/24 21:40 Blood Blood Culture - Final NO GROWTH AFTER 5 DAYS OF INCUBATION. Complete Problem List/Assessment/Plan Problem List/Assessment/Plan * Right leg cellulitis with sepsis. The patient will be placed on broad-spectrum antibiotics to include meropenem and dapto. A surgical consult will be obtained with Dr. Juarez. * Morbid obesity. * Diabetes mellitus, for which he will be placed on sliding scale insulin. * History of hypertension. * acute on chronic diastolic heart failure: bumex iv * History of deep venous thrombosis, for which he will be placed on DVT prophylaxis. * sleep apnea: bipap advance care planning- full code- time spent 19 mins Plan discussed with: Patient My Orders My Orders Orders - ALINE GARBER MD Procedure Category Date Status Time Potassium Er Tablet PHA 08/14/24 Verified (Klor-Con Tablet) 10:30 Bumetanide Injection PHA 08/15/24 Verified (Bumex Injection) 10:00 Hydromorphone PHA 08/14/24 Verified Injection (Dilaudid 10:30 Basic Metabolic Panel LAB 08/15/24 Verified 06:00 Magnesium LAB 08/15/24 Verified 05:00 Dietary Evaluation Review Recommendations by RD: Dietary education by RD Comments: 1) Add 60g CCHO restriction to cardiac diet order 2) Refer to outpatient RD/CDCES for weight management 3) Continue to monitor skin integrity Expected Outcomes/Goals: 1) appetite and labs to improve 2) wound to improve Date of Service: Aug 14, 2024 Billing Provider: ALINE GARBER MD Common Visit Codes: [id number] INP/OBS CARE(HIGH) ALINE GARBER MD Aug 14, 2024 10:34
[2024-08-14] MEDS: POTASSIUM CHL 20 Meq TABLET PO ONE (11:29)
[2024-08-14] MEDS: DAPTOMYCIN IV ONE (12:09)
[2024-08-14] MEDS: SODIUM CHL 0.9% IV ONE (12:09)
[2024-08-14] MEDS: HYDROmorphone HCL 2 MG/ML VL/or syr IV PRN (13:06)
--- NOTE | 2024-08-14 17:21 | DVHPN2 ---
Progress Note Date Seen: Aug 14, 2024 Medical Necessity Reason Pt with a Central, PICC or Fol: No Objective vital signs Vital Sign Date Time Temp Pulse Resp B/P (MAP) Pulse Ox O2 Delivery O2 Flow Rate FiO2 08/14/24 16:53 98.4 81 22 131/66 (87) 95 98.4 08/14/24 08:00 Room Air* 0 21 Total Intake and Output 08/13/24 08/13/24 08/14/24 15:00 23:00 07:00 Intake Total 1000 ml 1650 ml Output Total 3000 ml 800 ml 3200 ml Balance -3000 ml 200 ml -1550 ml medications Current Medications Medications Dose Ordered Sig/Nadia Route Start Time Stop Time Status Last Admin Dose Admin Daptomycin / Sodium Chloride 50 ml @ 100 mls/hr DAILY IV 08/09/24 10:00 UNV Meropenem 50 ml @ 17 mls/hr Q8H IV 08/09/24 08:00 08/14/24 16:21 17 MLS/HR Sodium Chloride 10 ml Q8HR IV 08/09/24 14:00 08/14/24 14:09 10 ML Acetaminophen/ Hydrocodone Bitart 1 tab Q4HP PRN PO 08/09/24 07:45 08/14/24 16:25 1 TAB Ondansetron HCl 4 mg Q4HP PRN IV 08/09/24 07:45 08/11/24 21:13 4 MG Docusate Sodium 100 mg BIDPRN PRN PO 08/09/24 07:45 Acetaminophen 650 mg Q6HP PRN PO 08/09/24 07:45 Enoxaparin Sodium 110 mg Q12HR SC 08/09/24 09:00 08/14/24 10:02 110 MG Morphine Sulfate 2 mg Q30M PRN IV 08/09/24 16:45 Nitroglycerin 0.4 mg Q5MINP PRN SL 08/09/24 16:45 Potassium Chloride 20 meq DAILY PO 08/11/24 10:00 08/14/24 10:02 20 MEQ Diagnostic Test (Pha) 1 strip ACHS 08/10/24 17:00 08/14/24 11:37 1 STRIP Insulin Human Regular HS SC 08/10/24 22:00 08/13/24 22:16 3 UNITS Insulin Human Regular AC SC 08/10/24 17:00 08/14/24 11:36 9 UNITS Dextrose 50 ml UD PRN IV 08/10/24 11:45 Metoclopramide HCl 10 mg Q6HR PRN IV 08/11/24 00:15 08/11/24 14:20 10 MG Insulin Glargine 10 units HS SC 08/11/24 22:00 08/13/24 22:17 10 UNITS Bumetanide 1 mg DAILY IV 08/15/24 10:00 Hydromorphone HCl 1 mg Q4HPRN PRN IV 08/14/24 10:30 08/14/24 13:06 1 MG Daptomycin 1400 mg/Sodium Chloride 50 ml @ 100 mls/hr DAILY IV 08/15/24 10:00 08/17/24 09:59 laboratory and microbiology Laboratory Tests 08/14/24 06:21 Test 08/14/24 06:21 Range/Units Serum Glucose 146 H 74-106 mg/dL Microbiology Date/Time Source Procedure Growth Status 08/08/24 21:40 Blood Blood Culture - Final NO GROWTH AFTER 5 DAYS OF INCUBATION. Complete Problem List/Assessment/Plan Problem List/Assessment/Plan AFEBRILE VSS R LEG CELLULITIS IMPROVING NO MATURE ABSCESS DIFFICULT EVAL SEC TO EXTENSIVE LYMPHEDEMA CONTINUE IV ABX CLOSE OBSERVATION LEG ELEVATION INDICATED NURSE AT BEDSIDE DR MERCER TO EVAL Plan discussed with: Patient Dietary Evaluation Review Recommendations by RD: Dietary education by RD Comments: 1) Add 60g CCHO restriction to cardiac diet order 2) Refer to outpatient RD/CDCES for weight management 3) Continue to monitor skin integrity Expected Outcomes/Goals: 1) appetite and labs to improve 2) wound to improve RUPINDER LOZOYA MD Aug 14, 2024 17:21
--- NOTE | 2024-08-14 18:20 | DVHCONRES ---
Date Seen: Aug 14, 2024 Resident Creating Document: MICHELA MERCER Jr., MD Referring Physician Jonnie Reason for Consultation Cellulitis History of Present Illness 43-year-old male brought in by EMS. Patient complaining of right lower leg pain. Patient reports a history of cellulitis. History of lymphedema. States he was hospitalized for cellulitis two years ago. Recently over the last several days developed increasing pain and swelling in the right leg with erythema. Was admitted to the hospital with cellulitis. Past Medical History Lymphedema Family History: Diabetes during G8 MOTHER Diabetes mellitus G8 FATHER Social History Nonsmoker nondrinker. Allergies: Coded Allergies: Piperacillin (Verified Allergy, Unknown, 08/08/24) Sulfamethoxazole w/Trimethoprim (Verified Allergy, Unknown, 08/08/24) Tazobactam (Verified Allergy, Unknown, 08/08/24) Vancomycin (Verified Allergy, Unknown, 08/08/24) Current Medications Current Medications Medications (Trade) Dose Ordered Sig/Nadia Route PRN Reason Start Time Stop Time Status Last Admin Daptomycin 1400 mg/Sodium Chloride 50 ml @ 100 mls/hr Q24H IV 08/14/24 09:30 08/14/24 11:30 DC Bumetanide (Bumex Injection) 1 mg DAILY IV 08/15/24 10:00 Hydromorphone HCl (Dilaudid Injection) 1 mg Q4HPRN PRN IV SEVERE PAIN (7-10 PAIN SCALE) 08/14/24 10:30 08/14/24 18:08 Daptomycin 1400 mg/Sodium Chloride 50 ml @ 100 mls/hr DAILY IV 08/15/24 10:00 08/17/24 09:59 Review of Systems Also smoothed reviewed otherwise negative other than HPI. Vital Signs Vital Signs Date Time Temp Pulse Resp B/P (MAP) Pulse Ox O2 Delivery O2 Flow Rate FiO2 08/14/24 18:08 98 20 131/69 08/14/24 16:53 98.4 95 98.4 08/14/24 08:00 Room Air* 0 21 Physical Exam Right leg significant 4+ edema. As consistent with lymphedema. Erythema minimal no open wounds. Labs/Diagnostic Data Labs Test 08/14/24 17:06 08/14/24 06:21 08/11/24 06:53 08/09/24 10:15 Range/Units POC Glucose 223 H 70-106 mg/dl White Blood Count 9.0 4.4-10.8 10^3/uL Red Blood Count 5.36 4.5-5.90 10^6/uL Hemoglobin 12.6 L 13.5-17.5 g/dL Hematocrit 40.3 L 41.0-53.0 % Mean Corpuscular Volume 75.3 L 80.0-100.0 fL Mean Corpuscular Hemoglobin 23.6 L 28.0-32.0 pg Mean Corpuscular Hemoglobin Concent 31.3 L 32.0-36.0 g/dL Red Cell Distribution Width 18.6 H 11.8-14.3 % Platelet Count 258 # 140-450 10^3/uL Mean Platelet Volume 8.0 6.9-10.8 fL Neutrophils (%) (Auto) 70.2 37.0-80.0 % Lymphocytes (%) (Auto) 23.4 10.0-50.0 % Monocytes (%) (Auto) 3.9 0.0-12.0 % Eosinophils (%) (Auto) 1.9 0.0-7.0 % Basophils (%) (Auto) 0.6 0.0-2.0 % Neutrophils # (Auto) 6.3 1.6-8.6 10 ^3/uL Lymphocytes # (Auto) 2.1 0.4-5.4 10 ^3/uL Monocytes # (Auto) 0.4 0-1.3 10 ^3/uL Eosinophils # (Auto) 0.2 0-0.8 10 ^3/uL Basophils # (Auto) 0.1 0-0.2 10 ^3/uL Nucleated Red Blood Cells 0.4 % Sodium Level 138 136-145 mmol/L Potassium Level 3.3 L 3.5-5.1 mmol/L Chloride Level 99 98-107 mmol/L Carbon Dioxide Level 29 20-31 mmol/L Anion Gap 10 5-15 Blood Urea Nitrogen 9 9-23 mg/dL Creatinine 0.73 0.700-1.30 mg/dL Glomerular Filtration Rate Calc 116 >90 mL/min BUN/Creatinine Ratio 12.3 10.0-20.0 Serum Glucose 146 H 74-106 mg/dL Calcium Level 8.8 8.7-10.4 mg/dL Differential Total Cells Counted 100.0 100 Neutrophils % (Manual) 77 37.0-80.0 Band Neutrophils % (Manual) 7 Lymphocytes % (Manual) 8 L 10.0-50.0 Monocytes % (Manual) 6 0-12 Eosinophils % (Manual) 2 0-7 Basophils % (Manual) 0 0.0-2.0 Metamyelocytes % (manual) 0 Myelocytes % (Manual) 0 Promyelocytes % (Manual) 0 Blast Cells % (Manual) 0 Reactive Lymphocytes 0 Platelet Estimate Adequate Hypochromasia (manual) Moderate Microcytosis Slight Ovalocytes Few Hemoglobin A1c 6.9 H <5.7 % A1C Total Bilirubin 0.8 0.2-1.0 mg/dL Aspartate Amino Transferase (AST) 35 13-40 U/L Alanine Aminotransferase (ALT) 27 7-40 U/L Alkaline Phosphatase 71 46-116 U/L Total Protein 6.0 5.7-8.2 g/dL Albumin 3.6 3.2-4.8 g/dL Test 08/08/24 23:48 08/08/24 22:28 08/08/24 21:40 Range/Units Lactic Acid Level 3.3 *H 0.4-2.0 mmol/L Urine Color Light-yellow Yellow Urine Clarity Clear Clear Urine pH 5.5 5.0-9.0 Urine Specific [place] 1.014 1.001-1.035 Urine Protein Negative Negative Urine Ketones Negative Negative Urine Blood 1+ H Negative /uL Urine Nitrite Negative Negative Urine Bilirubin Negative Negative Urine Urobilinogen Normal Negative mg/dL Urine Leukocyte Esterase Negative Negative /uL Urine RBC 1 0 - 3 /hpf Urine Microscopic WBC 1 0-3 /HPF Urine Squamous Epithelial Cells None seen <5 /hpf Urine Bacteria None seen None Seen /hpf Urine Glucose Normal Normal mg/dL D-Dimer, Quantitative 3.86 H 0.0-0.49 mg/L FEU Microbiology Date/Time Source Procedure Growth Status 08/08/24 21:40 Blood Blood Culture - Final NO GROWTH AFTER 5 DAYS OF INCUBATION. Complete Duplex Doppler evaluation of the deep venous system of the left lower extremity from the common femoral vein to the popliteal vein including color Doppler and spectral/pulsed waveform analysis was performed. Findings: The common femoral vein demonstrates appropriate compressibility and waveform variability. There is compressibility/patency of the great saphenous vein at the proximal thigh. The femoral vein demonstrates appropriate compressibility and waveform variability. The deep femoral vein demonstrates appropriate compressibility and waveform variability. The popliteal vein demonstrates appropriate compressibility and waveform variability. There is normal compressibility at the tibioperoneal trunk. In the right popliteal fossa there is an elongated complex avascular hypoechoic lesion measuring 4.1 x 5.6 x 1.5 cm compatible with a Pickett's cyst. Subcutaneous edema is noted in the calf area. Impression: 1. No left deep venous thrombosis. 2. If clinical concern/symptoms persist or worsen, short-interval follow-up study is suggested. 3. 4.1 x 5.6 x 1.5 cm pickett's cyst in the right popliteal fossa. Assessment 43-year-old male with significant history of right leg lymphedema. No DVT. Recommend higher level of care for lymphedema management. Plan/Recommendation 43-year-old male with significant history of right leg lymphedema. No DVT. Recommend higher level of care for lymphedema management. Plan discussed with: Patient MICHELA MERCER Jr., MD Aug 14, 2024 18:20
[2024-08-15] VITALS (13 sets, daily range): BP systolic 110–148; BP diastolic 59–79; PULSE 84–104; RESP 17–20; TEMP 97.6–98.3; O2SAT 94–100
[2024-08-15 09:46] LABS: Chloride 102 mmol/L (98-107); Potassium 3.8 mmol/L (3.5-5.1); Sodium 138 mmol/L (136-145)
[2024-08-15 09:47] LABS: Anion Gap 6 (5-15); Carbon Dioxide 30 mmol/L (20-31)
[2024-08-15 09:52] LABS: BUN/Creatinine Ratio 10.3 (10.0-20.0)
[2024-08-15 09:53] LABS: Magnesium 2.2 mg/dL (1.6-2.6)
[2024-08-15 09:54] LABS: Blood Urea Nitrogen 7 mg/dL (9-23); Calcium 8.6 mg/dL (8.7-10.4); Glucose 144 mg/dL (74-106)
--- NOTE | 2024-08-15 10:02 | DVHPN2 ---
Progress Note Date Seen: Aug 15, 2024 Medical Necessity Reason Pt with a Central, PICC or Fol: No Subjective Patient reports: No new complaints Review of Systems: HEENT:Normal, CVS:Normal, RESPIRATORY:Normal, GI:Normal, :Normal, MSK:Normal, NEURO:Normal Objective vital signs Vital Sign Date Time Temp Pulse Resp B/P (MAP) Pulse Ox O2 Delivery O2 Flow Rate FiO2 08/15/24 09:00 97.6 90 18 130/60 (83) 95 97.6 08/15/24 08:00 Room Air* 0 21 Total Intake and Output 08/14/24 08/14/24 08/15/24 15:00 23:00 07:00 Intake Total 100 ml 1200 ml 2050 ml Output Total 1750 ml 1800 ml Balance 100 ml -550 ml 250 ml medications Current Medications Medications Dose Ordered Sig/Nadia Route Start Time Stop Time Status Last Admin Dose Admin Daptomycin / Sodium Chloride 50 ml @ 100 mls/hr DAILY IV 08/09/24 10:00 UNV Meropenem 50 ml @ 17 mls/hr Q8H IV 08/09/24 08:00 08/15/24 08:23 17 MLS/HR Sodium Chloride 10 ml Q8HR IV 08/09/24 14:00 08/15/24 06:51 10 ML Acetaminophen/ Hydrocodone Bitart 1 tab Q4HP PRN PO 08/09/24 07:45 08/15/24 06:50 1 TAB Ondansetron HCl 4 mg Q4HP PRN IV 08/09/24 07:45 08/11/24 21:13 4 MG Docusate Sodium 100 mg BIDPRN PRN PO 08/09/24 07:45 Acetaminophen 650 mg Q6HP PRN PO 08/09/24 07:45 Enoxaparin Sodium 110 mg Q12HR SC 08/09/24 09:00 08/14/24 21:33 110 MG Morphine Sulfate 2 mg Q30M PRN IV 08/09/24 16:45 Nitroglycerin 0.4 mg Q5MINP PRN SL 08/09/24 16:45 Potassium Chloride 20 meq DAILY PO 08/11/24 10:00 08/14/24 10:02 20 MEQ Diagnostic Test (Pha) 1 strip ACHS 08/10/24 17:00 08/15/24 06:50 1 STRIP Insulin Human Regular HS SC 08/10/24 22:00 08/14/24 21:34 4 UNITS Insulin Human Regular AC SC 08/10/24 17:00 08/15/24 06:57 2 UNITS Dextrose 50 ml UD PRN IV 08/10/24 11:45 Metoclopramide HCl 10 mg Q6HR PRN IV 08/11/24 00:15 08/11/24 14:20 10 MG Insulin Glargine 10 units HS SC 08/11/24 22:00 08/14/24 21:34 10 UNITS Bumetanide 1 mg DAILY IV 08/15/24 10:00 Hydromorphone HCl 1 mg Q4HPRN PRN IV 08/14/24 10:30 08/15/24 08:20 1 MG Daptomycin 1400 mg/Sodium Chloride 50 ml @ 100 mls/hr DAILY IV 08/15/24 10:00 08/17/24 09:59 Examination: GENERAL:Normal, HEENT:Normal, NECK:Normal, LUNGS:Normal, CVS:Normal, ABDOMEN:Normal, MSK:Abnormal (right leg swelling, cellulitis), SKIN:Normal, NEURO:Normal, :Normal laboratory and microbiology Laboratory Tests 08/15/24 09:05 08/14/24 06:21 Test 08/15/24 09:05 Range/Units Serum Glucose 144 H 74-106 mg/dL Microbiology Date/Time Source Procedure Growth Status 08/08/24 21:40 Blood Blood Culture - Final NO GROWTH AFTER 5 DAYS OF INCUBATION. Complete Problem List/Assessment/Plan Problem List/Assessment/Plan * Right leg cellulitis with sepsis. The patient will be placed on broad-spectrum antibiotics to include meropenem and dapto. * Morbid obesity. * Diabetes mellitus, for which he will be placed on sliding scale insulin. * History of hypertension. * acute on chronic diastolic heart failure: bumex iv * History of deep venous thrombosis, for which he will be placed on DVT prophylaxis. * sleep apnea: bipap advance care planning- full code- time spent 19 mins Plan discussed with: Patient My Orders My Orders Orders - ALINE GARBER MD Procedure Category Date Status Time Bumetanide Injection PHA 08/15/24 In Process (Bumex Injection) 10:00 Hydromorphone PHA 08/14/24 In Process Injection (Dilaudid 10:30 Dietary Evaluation Review Recommendations by RD: Dietary education by RD Comments: 1) Add 60g CCHO restriction to cardiac diet order 2) Refer to outpatient RD/CDCES for weight management 3) Continue to monitor skin integrity Expected Outcomes/Goals: 1) appetite and labs to improve 2) wound to improve Date of Service: Aug 15, 2024 Billing Provider: ALINE GARBER MD Common Visit Codes: [id number] INP/OBS CARE(HIGH) ALINE GARBER MD Aug 15, 2024 10:02
[2024-08-15] MEDS: BUMETANIDE 1mg/4ml VIAL (0.25mg/ml) IV SCH (10:32)
[2024-08-15] MEDS: APIXABAN 5 MG TAB PO SCH (11:04)
[2024-08-15] MEDS: SODIUM CHL 0.9% IV SCH (13:01)
[2024-08-15] MEDS: DAPTOMYCIN IV SCH (13:01)
[2024-08-15] MEDS: HYDROcodone-ACET 10/325MG TAB PO PRN (23:40)
[2024-08-16] VITALS (12 sets, daily range): BP systolic 103–131; BP diastolic 59–76; PULSE 82–100; RESP 17–20; TEMP 97.9–98.6; O2SAT 92–98
--- NOTE | 2024-08-16 11:45 | DVHPN2 ---
Progress Note Date Seen: Aug 16, 2024 Medical Necessity Reason Pt with a Central, PICC or Fol: No Subjective Patient reports: No new complaints Review of Systems: HEENT:Normal, CVS:Normal, RESPIRATORY:Normal, GI:Normal, :Normal, MSK:Normal, NEURO:Normal Objective vital signs Vital Sign Date Time Temp Pulse Resp B/P (MAP) Pulse Ox O2 Delivery O2 Flow Rate FiO2 08/16/24 09:15 122/76 08/16/24 09:12 92 18 08/16/24 08:30 98.5 92 98.5 08/16/24 08:00 Room Air* 0 21 Total Intake and Output 08/15/24 08/15/24 08/16/24 15:00 23:00 07:00 Intake Total 50 ml 1050 ml 1250 ml Output Total 1400 ml Balance 50 ml 1050 ml -150 ml medications Current Medications Medications Dose Ordered Sig/Nadia Route Start Time Stop Time Status Last Admin Dose Admin Daptomycin / Sodium Chloride 50 ml @ 100 mls/hr DAILY IV 08/09/24 10:00 UNV Meropenem 50 ml @ 17 mls/hr Q8H IV 08/09/24 08:00 08/16/24 07:38 17 MLS/HR Sodium Chloride 10 ml Q8HR IV 08/09/24 14:00 08/16/24 05:31 10 ML Ondansetron HCl 4 mg Q4HP PRN IV 08/09/24 07:45 08/11/24 21:13 4 MG Docusate Sodium 100 mg BIDPRN PRN PO 08/09/24 07:45 Acetaminophen 650 mg Q6HP PRN PO 08/09/24 07:45 Morphine Sulfate 2 mg Q30M PRN IV 08/09/24 16:45 Nitroglycerin 0.4 mg Q5MINP PRN SL 08/09/24 16:45 Potassium Chloride 20 meq DAILY PO 08/11/24 10:00 08/16/24 09:14 20 MEQ Diagnostic Test (Pha) 1 strip ACHS 08/10/24 17:00 08/16/24 06:30 1 STRIP Insulin Human Regular HS SC 08/10/24 22:00 08/15/24 21:08 3 UNITS Insulin Human Regular AC SC 08/10/24 17:00 08/16/24 06:29 6 UNITS Dextrose 50 ml UD PRN IV 08/10/24 11:45 Metoclopramide HCl 10 mg Q6HR PRN IV 08/11/24 00:15 08/11/24 14:20 10 MG Insulin Glargine 10 units HS SC 08/11/24 22:00 08/15/24 21:08 10 UNITS Bumetanide 1 mg DAILY IV 08/15/24 10:00 08/16/24 09:15 1 MG Hydromorphone HCl 1 mg Q4HPRN PRN IV 08/14/24 10:30 08/16/24 09:12 1 MG Daptomycin 1400 mg/Sodium Chloride 50 ml @ 100 mls/hr DAILY IV 08/15/24 10:00 08/17/24 09:59 08/15/24 13:01 100 MLS/HR Acetaminophen/ Hydrocodone Bitart 1 tab Q4HP PRN PO 08/15/24 10:00 08/16/24 06:34 1 TAB Apixaban 5 mg BID PO 08/15/24 10:00 08/16/24 09:15 5 MG Examination: GENERAL:Normal, HEENT:Normal, NECK:Normal, LUNGS:Normal, CVS:Normal, ABDOMEN:Normal, MSK:Normal, MSK:Abnormal (right leg cellulitis), SKIN:Normal, NEURO:Normal, :Normal laboratory and microbiology Laboratory Tests 08/15/24 09:05 08/14/24 06:21 Test 08/15/24 09:05 Range/Units Serum Glucose 144 H 74-106 mg/dL Microbiology Date/Time Source Procedure Growth Status 08/08/24 21:40 Blood Blood Culture - Final NO GROWTH AFTER 5 DAYS OF INCUBATION. Complete Problem List/Assessment/Plan Problem List/Assessment/Plan * Right leg cellulitis with sepsis. The patient will be placed on broad-spectrum antibiotics to include meropenem and dapto. * Morbid obesity. * Diabetes mellitus, for which he will be placed on sliding scale insulin. * History of hypertension. * acute on chronic diastolic heart failure: bumex iv * History of deep venous thrombosis, for which he will be placed on DVT prophylaxis. * sleep apnea: bipap advance care planning- full code- time spent 19 mins Plan discussed with: Patient Dietary Evaluation Review Recommendations by RD: Dietary education by RD Comments: 1) Add 60g CCHO restriction to cardiac diet order 2) Refer to outpatient RD/[facility] for weight management 3) Continue to monitor skin integrity Expected Outcomes/Goals: 1) appetite and labs to improve 2) wound to improve Date of Service: Aug 16, 2024 Billing Provider: ALINE GARBER MD Common Visit Codes: [id number] INP/OBS CARE(HIGH) ALINE GARBER MD Aug 16, 2024 11:45
[2024-08-17] VITALS (11 sets, daily range): BP systolic 127–140; BP diastolic 64–88; PULSE 90–111; RESP 14–22; TEMP 97.8–98.9; O2SAT 93–100
--- NOTE | 2024-08-17 15:27 | DVHPN2 ---
Progress Note Date Seen: Aug 17, 2024 Medical Necessity Reason Pt with a Central, PICC or Fol: No Subjective Patient reports: No new complaints Review of Systems: HEENT:Normal, CVS:Normal, RESPIRATORY:Normal, GI:Normal, :Normal, MSK:Normal, NEURO:Normal Objective vital signs Vital Sign Date Time Temp Pulse Resp B/P (MAP) Pulse Ox O2 Delivery O2 Flow Rate FiO2 08/17/24 12:30 98.9 103 18 127/72 (90) 95 98.9 08/17/24 08:00 Room Air* 0 21 Total Intake and Output 08/16/24 08/16/24 08/17/24 15:00 23:00 07:00 Intake Total 1025 ml Output Total 850 ml Balance 175 ml medications Current Medications Medications Dose Ordered Sig/Nadia Route Start Time Stop Time Status Last Admin Dose Admin Daptomycin / Sodium Chloride 50 ml @ 100 mls/hr DAILY IV 08/09/24 10:00 UNV Meropenem 50 ml @ 17 mls/hr Q8H IV 08/09/24 08:00 08/17/24 08:37 17 MLS/HR Sodium Chloride 10 ml Q8HR IV 08/09/24 14:00 08/17/24 14:00 10 ML Ondansetron HCl 4 mg Q4HP PRN IV 08/09/24 07:45 08/11/24 21:13 4 MG Docusate Sodium 100 mg BIDPRN PRN PO 08/09/24 07:45 Acetaminophen 650 mg Q6HP PRN PO 08/09/24 07:45 Morphine Sulfate 2 mg Q30M PRN IV 08/09/24 16:45 Nitroglycerin 0.4 mg Q5MINP PRN SL 08/09/24 16:45 Potassium Chloride 20 meq DAILY PO 08/11/24 10:00 08/17/24 09:38 20 MEQ Diagnostic Test (Pha) 1 strip ACHS 08/10/24 17:00 08/17/24 11:44 1 STRIP Insulin Human Regular HS SC 08/10/24 22:00 08/16/24 21:24 3 UNITS Insulin Human Regular AC SC 08/10/24 17:00 08/17/24 11:45 6 UNITS Dextrose 50 ml UD PRN IV 08/10/24 11:45 Metoclopramide HCl 10 mg Q6HR PRN IV 08/11/24 00:15 08/11/24 14:20 10 MG Insulin Glargine 10 units HS SC 08/11/24 22:00 08/16/24 21:21 10 UNITS Bumetanide 1 mg DAILY IV 08/15/24 10:00 08/17/24 09:39 1 MG Hydromorphone HCl 1 mg Q4HPRN PRN IV 08/14/24 10:30 08/17/24 11:47 1 MG Acetaminophen/ Hydrocodone Bitart 1 tab Q4HP PRN PO 08/15/24 10:00 08/17/24 15:24 1 TAB Apixaban 5 mg BID PO 08/15/24 10:00 08/17/24 09:39 5 MG Examination: GENERAL:Normal, HEENT:Normal, NECK:Normal, LUNGS:Normal, CVS:Normal, ABDOMEN:Normal, MSK:Normal, MSK:Abnormal (RIGHT LEG CELLULITIS), SKIN:Normal, NEURO:Normal, :Normal laboratory and microbiology Laboratory Tests 08/15/24 09:05 08/14/24 06:21 Test 08/15/24 09:05 Range/Units Serum Glucose 144 H 74-106 mg/dL Microbiology Date/Time Source Procedure Growth Status 08/08/24 21:40 Blood Blood Culture - Final NO GROWTH AFTER 5 DAYS OF INCUBATION. Complete Problem List/Assessment/Plan Problem List/Assessment/Plan * Right leg cellulitis with sepsis. The patient will be placed on broad-spectrum antibiotics to include meropenem and dapto. * Morbid obesity. * Diabetes mellitus, for which he will be placed on sliding scale insulin. * History of hypertension. * acute on chronic diastolic heart failure: bumex * History of deep venous thrombosis, for which he will be placed on DVT prophylaxis. * sleep apnea: bipap * Diarrhea: imodium advance care planning- full code- time spent 19 mins Plan discussed with: Patient My Orders My Orders Orders - ALINE GARBER MD Procedure Category Date Status Time Florastor (S. PHA 08/18/24 Transmitted Boulardii) (Florastor) 10:00 Loperamide Capsule PHA 08/17/24 Transmitted (Imodium Capsule) 15:30 Basic Metabolic Panel LAB 08/18/24 Verified 06:00 Complete Blood Count LAB 08/18/24 Verified 06:00 Bumetanide Tablet PHA 08/18/24 Transmitted (Bumex Tablet) 10:00 Dietary Evaluation Review Recommendations by RD: Dietary education by RD Comments: 1) Add 60g CCHO restriction to cardiac diet order 2) Refer to outpatient RD/CDCES for weight management 3) Continue to monitor skin integrity Expected Outcomes/Goals: 1) appetite and labs to improve 2) wound to improve Date of Service: Aug 17, 2024 Billing Provider: ALINE GARBER MD Common Visit Codes: [id number] INP/OBS CARE(HIGH) ALINE GARBER MD Aug 17, 2024 15:26
[2024-08-17] MEDS ORDERED: LOPERAMIDE HCL 2 MG CAP/TAB PO PRN (15:30)
[2024-08-17] MEDS: LOPERAMIDE HCL 2 MG CAP/TAB PO PRN (16:56)
[2024-08-18] VITALS (12 sets, daily range): BP systolic 102–146; BP diastolic 58–86; PULSE 89–104; RESP 18–22; TEMP 97.9–98.6; O2SAT 94–98
[2024-08-18 07:22] LABS: Basophils # (auto) 0.1 10 ^3/uL (0-0.2); Platelet Count (auto) 335 10^3/uL (140-450)
[2024-08-18 07:26] LABS: Basophils % (auto) 0.9 % (0.0-2.0); Eosinophils # (auto) 0.1 10 ^3/uL (0-0.8); Eosinophils % (auto) 1.4 % (0.0-7.0); Hematocrit 37.9 % (41.0-53.0); Hemoglobin 12.6 g/dL (13.5-17.5); Lymphocytes # (auto) 2.7 10 ^3/uL (0.4-5.4); Lymphocytes % (auto) 27.7 % (10.0-50.0); Mean Corpuscular Hgb Conc. 33.4 g/dL (32.0-36.0); Monocytes # (auto) 0.6 10 ^3/uL (0-1.3); Monocytes % (auto) 6.2 % (0.0-12.0); Neutrophils # (auto) 6.3 10 ^3/uL (1.6-8.6); Neutrophils % (auto) 63.8 % (37.0-80.0); Nucleated Red Blood Cells % 0.1 %; Red Blood Cells 5.05 10^6/uL (4.5-5.90); Red Cell Distribution Width 18.3 % (11.8-14.3); White Blood Cell 9.8 10^3/uL (4.4-10.8)
[2024-08-18 07:44] LABS: Chloride 103 mmol/L (98-107); Potassium 3.9 mmol/L (3.5-5.1); Sodium 138 mmol/L (136-145)
[2024-08-18 07:45] LABS: Anion Gap 7 (5-15); Calcium 9.1 mg/dL (8.7-10.4); Carbon Dioxide 28 mmol/L (20-31)
[2024-08-18 07:50] LABS: BUN/Creatinine Ratio 16.7 (10.0-20.0); Blood Urea Nitrogen 13 mg/dL (9-23)
[2024-08-18 07:57] LABS: Glucose 166 mg/dL (74-106)
[2024-08-18] MEDS: BUMETANIDE 1 MG TAB PO SCH (10:19)
[2024-08-18] MEDS: FLORASTOR (S. BOULARDII) 250 MG CAP PO SCH (10:20)
--- NOTE | 2024-08-18 18:08 | DVHPN2 ---
Subjective * Right leg cellulitis with sepsis. The patient will be placed on broad-spectrum antibiotics to include meropenem and dapto. * Morbid obesity. * Diabetes mellitus, for which he will be placed on sliding scale insulin. * History of hypertension. * acute on chronic diastolic heart failure: bumex * History of deep venous thrombosis, for which he will be placed on DVT prophylaxis. * sleep apnea: bipap * Diarrhea: imodium Reviewed: Care Plan Changes from previous H/P or p: No Changes Eyes: No Pain, No Vision change, No Conjunctivae inflammation, No Eyelid inflammation, No Other, No Redness ENT: No Ear pain, No Ear discharge, No Nose pain, No Nose discharge, No Nose congestion, No Mouth pain, No Mouth swelling, No Throat pain, No Throat swelling, No Other Cardiovascular: No Chest Pain, No Palpitations, No Orthopnea, No Paroxysmal Noc. Dyspnea, No Edema, No Lt Headedness, No Other Respiratory: No Cough, No Dry, No Shortness of breath, No SOB with excertion, No Wheezing, No Hemoptysis, No Pleuritic Pain, No Sputum, No Other Gastrointestinal: No Nausea, No Vomiting, No Abdominal Pain, No Diarrhea, No Constipation, No Melena, No Hematochezia, No Other Genitourinary: No Dysuria, No Frequency, No Incontinence, No Hematuria, No Retention, No Other Musculoskeletal: No other, No neck pain, No shoulder pain, No arm pain, No back pain, No hand pain; leg pain; No foot pain Skin: No Rash; Lesions; No Jaundice, No Bruising, No Other Objective Vitals Vital Signs Date Time Temp Pulse Resp B/P (MAP) Pulse Ox O2 Delivery O2 Flow Rate FiO2 08/18/24 17:00 98.4 89 18 102/75 (84) 98 98.4 08/18/24 08:00 Room Air* 0 21 Intake/Output Intake and Output 08/18/24 07:00 Intake Total 2080 ml Output Total 3100 ml Balance -1020 ml Intake Oral 1980 ml IV Total 100 ml Output Urine Total 3100 ml # Bowel Movements 8 Medications Current Medications Medications Dose Ordered Sig/Nadia Route Start Time Stop Time Status Last Admin Dose Admin Daptomycin / Sodium Chloride 50 ml @ 100 mls/hr DAILY IV 08/09/24 10:00 UNV Meropenem 50 ml @ 17 mls/hr Q8H IV 08/09/24 08:00 08/18/24 17:30 17 MLS/HR Sodium Chloride 10 ml Q8HR IV 08/09/24 14:00 08/18/24 14:02 10 ML Ondansetron HCl 4 mg Q4HP PRN IV 08/09/24 07:45 08/11/24 21:13 4 MG Docusate Sodium 100 mg BIDPRN PRN PO 08/09/24 07:45 Acetaminophen 650 mg Q6HP PRN PO 08/09/24 07:45 Morphine Sulfate 2 mg Q30M PRN IV 08/09/24 16:45 Nitroglycerin 0.4 mg Q5MINP PRN SL 08/09/24 16:45 Potassium Chloride 20 meq DAILY PO 08/11/24 10:00 08/18/24 10:20 20 MEQ Diagnostic Test (Pha) 1 strip ACHS 08/10/24 17:00 08/18/24 17:00 1 STRIP Insulin Human Regular HS SC 08/10/24 22:00 08/17/24 21:35 6 UNITS Insulin Human Regular AC SC 08/10/24 17:00 08/18/24 17:51 3 UNITS Dextrose 50 ml UD PRN IV 08/10/24 11:45 Metoclopramide HCl 10 mg Q6HR PRN IV 08/11/24 00:15 08/18/24 00:41 10 MG Insulin Glargine 10 units HS SC 08/11/24 22:00 08/17/24 21:34 10 UNITS Hydromorphone HCl 1 mg Q4HPRN PRN IV 08/14/24 10:30 08/18/24 14:02 1 MG Acetaminophen/ Hydrocodone Bitart 1 tab Q4HP PRN PO 08/15/24 10:00 08/18/24 17:50 1 TAB Apixaban 5 mg BID PO 08/15/24 10:00 08/18/24 10:19 5 MG Saccharomyces Boulardii 250 mg DAILY PO 08/18/24 10:00 08/18/24 10:20 250 MG Bumetanide 1 mg DAILY PO 08/18/24 10:00 08/18/24 10:19 1 MG Loperamide HCl 2 mg Q6HP PRN PO 08/17/24 16:30 08/18/24 10:41 2 MG Laboratory Results Laboratory Tests 08/18/24 06:55 Chemistry Test 08/18/24 06:55 Calcium Level 9.1 mg/dL (8.7-10.4) Urinalysis Test 08/08/24 22:28 Urine Color Light-yellow (Yellow) Urine Clarity Clear (Clear) Urine pH 5.5 (5.0-9.0) Urine Specific [place] 1.014 (1.001-1.035) Urine Protein Negative (Negative) Urine Ketones Negative (Negative) Urine Blood 1+ /uL (Negative) H Urine Nitrite Negative (Negative) Urine Bilirubin Negative (Negative) Urine Urobilinogen Normal mg/dL (Negative) Urine Leukocyte Esterase Negative /uL (Negative) Urine RBC 1 /hpf (0 - 3) Urine Microscopic WBC 1 /HPF (0-3) Urine Squamous Epithelial Cells None seen /hpf (<5) Urine Bacteria None seen /hpf (None Seen) Urine Glucose Normal mg/dL (Normal) Microbiology Microbiology Date/Time Source Procedure Growth Status 08/08/24 21:40 Blood Blood Culture - Final NO GROWTH AFTER 5 DAYS OF INCUBATION. Complete Assessment/Plan Assessment/Plan Right leg cellulitis with sepsis. The patient will be placed on broad-spectrum antibiotics to include meropenem and dapto. Morbid obesity. Diabetes mellitus, for which he will be placed on sliding scale insulin. History of hypertension. acute on chronic diastolic heart failure: bumex History of deep venous thrombosis, for which he will be placed on DVT prophylaxis. sleep apnea: bipap Diarrhea: imodium Plan discussed with: Patient Date of Service: Aug 18, 2024 Billing Provider: RANDALL BRADSHAW MD Common Visit Codes: [id number] INP/OBS CARE(HIGH) RANDALL BRADSHAW MD Aug 18, 2024 18:08
[2024-08-19] VITALS (12 sets, daily range): BP systolic 120–151; BP diastolic 50–83; PULSE 88–104; RESP 18–20; TEMP 97.9–98.2; O2SAT 95–100
--- NOTE | 2024-08-19 16:18 | DVHPN2 ---
Subjective * Right leg cellulitis with sepsis. The patient will be placed on broad-spectrum antibiotics to include meropenem and dapto. * Morbid obesity. * Diabetes mellitus, for which he will be placed on sliding scale insulin. * History of hypertension. * acute on chronic diastolic heart failure: bumex * History of deep venous thrombosis, for which he will be placed on DVT prophylaxis. * sleep apnea: bipap * Diarrhea: imodium Reviewed: Care Plan Changes from previous H/P or p: No Changes Eyes: No Pain, No Vision change, No Conjunctivae inflammation, No Eyelid inflammation, No Other, No Redness ENT: No Ear pain, No Ear discharge, No Nose pain, No Nose discharge, No Nose congestion, No Mouth pain, No Mouth swelling, No Throat pain, No Throat swelling, No Other Cardiovascular: No Chest Pain, No Palpitations, No Orthopnea, No Paroxysmal Noc. Dyspnea, No Edema, No Lt Headedness, No Other Respiratory: No Cough, No Dry, No Shortness of breath, No SOB with excertion, No Wheezing, No Hemoptysis, No Pleuritic Pain, No Sputum, No Other Gastrointestinal: No Nausea, No Vomiting, No Abdominal Pain, No Diarrhea, No Constipation, No Melena, No Hematochezia, No Other Genitourinary: No Dysuria, No Frequency, No Incontinence, No Hematuria, No Retention, No Other Musculoskeletal: No other, No neck pain, No shoulder pain, No arm pain, No back pain, No hand pain; leg pain; No foot pain Skin: No Rash; Lesions; No Jaundice, No Bruising, No Other Objective Vitals Vital Signs Date Time Temp Pulse Resp B/P (MAP) Pulse Ox O2 Delivery O2 Flow Rate FiO2 08/19/24 13:00 98.0 102 20 135/76 (95) 95 98.0 08/19/24 10:39 Room Air* 0 21 Intake/Output Intake and Output 08/19/24 07:00 Intake Total 1450 ml Output Total 3650 ml Balance -2200 ml Intake Oral 1450 ml Output Urine Total 3650 ml # Bowel Movements 5 Medications Current Medications Medications Dose Ordered Sig/Nadia Route Start Time Stop Time Status Last Admin Dose Admin Daptomycin / Sodium Chloride 50 ml @ 100 mls/hr DAILY IV 08/09/24 10:00 UNV Meropenem 50 ml @ 17 mls/hr Q8H IV 08/09/24 08:00 08/19/24 16:02 17 MLS/HR Sodium Chloride 10 ml Q8HR IV 08/09/24 14:00 08/19/24 14:10 10 ML Ondansetron HCl 4 mg Q4HP PRN IV 08/09/24 07:45 08/11/24 21:13 4 MG Docusate Sodium 100 mg BIDPRN PRN PO 08/09/24 07:45 Acetaminophen 650 mg Q6HP PRN PO 08/09/24 07:45 Morphine Sulfate 2 mg Q30M PRN IV 08/09/24 16:45 Nitroglycerin 0.4 mg Q5MINP PRN SL 08/09/24 16:45 Potassium Chloride 20 meq DAILY PO 08/11/24 10:00 08/19/24 09:21 20 MEQ Diagnostic Test (Pha) 1 strip ACHS 08/10/24 17:00 08/19/24 11:30 1 STRIP Insulin Human Regular HS SC 08/10/24 22:00 08/18/24 22:01 3 UNITS Insulin Human Regular AC SC 08/10/24 17:00 08/19/24 11:30 3 UNITS Dextrose 50 ml UD PRN IV 08/10/24 11:45 Metoclopramide HCl 10 mg Q6HR PRN IV 08/11/24 00:15 08/18/24 00:41 10 MG Insulin Glargine 10 units HS SC 08/11/24 22:00 08/18/24 22:01 10 UNITS Hydromorphone HCl 1 mg Q4HPRN PRN IV 08/14/24 10:30 08/19/24 11:46 1 MG Acetaminophen/ Hydrocodone Bitart 1 tab Q4HP PRN PO 08/15/24 10:00 08/19/24 09:08 1 TAB Apixaban 5 mg BID PO 08/15/24 10:00 08/19/24 09:21 5 MG Saccharomyces Boulardii 250 mg DAILY PO 08/18/24 10:00 08/19/24 09:22 250 MG Bumetanide 1 mg DAILY PO 08/18/24 10:00 08/19/24 09:22 1 MG Loperamide HCl 2 mg Q6HP PRN PO 08/17/24 16:30 08/19/24 15:17 2 MG Laboratory Results Laboratory Tests 3/7/25 06:55 Urinalysis Test 08/08/24 22:28 Urine Color Light-yellow (Yellow) Urine Clarity Clear (Clear) Urine pH 5.5 (5.0-9.0) Urine Specific [place] 1.014 (1.001-1.035) Urine Protein Negative (Negative) Urine Ketones Negative (Negative) Urine Blood 1+ /uL (Negative) H Urine Nitrite Negative (Negative) Urine Bilirubin Negative (Negative) Urine Urobilinogen Normal mg/dL (Negative) Urine Leukocyte Esterase Negative /uL (Negative) Urine RBC 1 /hpf (0 - 3) Urine Microscopic WBC 1 /HPF (0-3) Urine Squamous Epithelial Cells None seen /hpf (<5) Urine Bacteria None seen /hpf (None Seen) Urine Glucose Normal mg/dL (Normal) Microbiology Microbiology Date/Time Source Procedure Growth Status 08/08/24 21:40 Blood Blood Culture - Final NO GROWTH AFTER 5 DAYS OF INCUBATION. Complete Assessment/Plan Assessment/Plan Right leg cellulitis with sepsis. The patient will be placed on broad-spectrum antibiotics to include meropenem and dapto. Morbid obesity. Diabetes mellitus, for which he will be placed on sliding scale insulin. History of hypertension. acute on chronic diastolic heart failure: bumex History of deep venous thrombosis, for which he will be placed on DVT prophylaxis. sleep apnea: bipap Diarrhea: imodium Plan discussed with: Patient Date of Service: Aug 19, 2024 Billing Provider: RANDALL BRADSHAW MD Common Visit Codes: [id number] INP/OBS CARE(HIGH) RANDALL BRADSHAW MD Aug 19, 2024 16:18
[2024-08-20] VITALS (10 sets, daily range): BP systolic 113–149; BP diastolic 54–87; PULSE 86–105; RESP 17–20; TEMP 97.8–98.4; O2SAT 91–100
--- NOTE | 2024-08-20 20:31 | DVHPN2 ---
Subjective * Right leg cellulitis with sepsis. The patient will be placed on broad-spectrum antibiotics to include meropenem and dapto. * Morbid obesity. * Diabetes mellitus, for which he will be placed on sliding scale insulin. * History of hypertension. * acute on chronic diastolic heart failure: bumex * History of deep venous thrombosis, for which he will be placed on DVT prophylaxis. * sleep apnea: bipap * Diarrhea: imodium Reviewed: Care Plan Changes from previous H/P or p: No Changes Eyes: No Pain, No Vision change, No Conjunctivae inflammation, No Eyelid inflammation, No Other, No Redness ENT: No Ear pain, No Ear discharge, No Nose pain, No Nose discharge, No Nose congestion, No Mouth pain, No Mouth swelling, No Throat pain, No Throat swelling, No Other Cardiovascular: No Chest Pain, No Palpitations, No Orthopnea, No Paroxysmal Noc. Dyspnea, No Edema, No Lt Headedness, No Other Respiratory: No Cough, No Dry, No Shortness of breath, No SOB with excertion, No Wheezing, No Hemoptysis, No Pleuritic Pain, No Sputum, No Other Gastrointestinal: No Nausea, No Vomiting, No Abdominal Pain, No Diarrhea, No Constipation, No Melena, No Hematochezia, No Other Genitourinary: No Dysuria, No Frequency, No Incontinence, No Hematuria, No Retention, No Other Musculoskeletal: No other, No neck pain, No shoulder pain, No arm pain, No back pain, No hand pain; leg pain; No foot pain Skin: No Rash; Lesions; No Jaundice, No Bruising, No Other Objective Vitals Vital Signs Date Time Temp Pulse Resp B/P (MAP) Pulse Ox O2 Delivery O2 Flow Rate FiO2 08/20/24 18:15 72 15 130/78 08/20/24 17:00 98.4 98 98.4 08/20/24 08:10 Room Air* 0 21 Intake/Output Intake and Output 08/20/24 07:00 Intake Total 4815 ml Output Total 2650 ml Balance 2165 ml Intake Oral 4765 ml IV Total 50 ml Output Urine Total 2650 ml # Voids 5 # Bowel Movements 2 Medications Current Medications Medications Dose Ordered Sig/Nadia Route Start Time Stop Time Status Last Admin Dose Admin Daptomycin / Sodium Chloride 50 ml @ 100 mls/hr DAILY IV 08/09/24 10:00 UNV Meropenem 50 ml @ 17 mls/hr Q8H IV 08/09/24 08:00 08/20/24 16:41 17 MLS/HR Sodium Chloride 10 ml Q8HR IV 08/09/24 14:00 08/20/24 15:13 10 ML Ondansetron HCl 4 mg Q4HP PRN IV 08/09/24 07:45 08/11/24 21:13 4 MG Docusate Sodium 100 mg BIDPRN PRN PO 08/09/24 07:45 Acetaminophen 650 mg Q6HP PRN PO 08/09/24 07:45 Nitroglycerin 0.4 mg Q5MINP PRN SL 08/09/24 16:45 Potassium Chloride 20 meq DAILY PO 08/11/24 10:00 08/20/24 10:09 20 MEQ Diagnostic Test (Pha) 1 strip ACHS 08/10/24 17:00 08/20/24 17:00 1 STRIP Insulin Human Regular HS SC 08/10/24 22:00 08/19/24 22:00 4 UNITS Insulin Human Regular AC SC 08/10/24 17:00 08/20/24 17:37 6 UNITS Dextrose 50 ml UD PRN IV 08/10/24 11:45 Metoclopramide HCl 10 mg Q6HR PRN IV 08/11/24 00:15 08/18/24 00:41 10 MG Insulin Glargine 10 units HS SC 08/11/24 22:00 08/19/24 22:01 10 UNITS Hydromorphone HCl 1 mg Q4HPRN PRN IV 08/14/24 10:30 08/20/24 17:42 1 MG Acetaminophen/ Hydrocodone Bitart 1 tab Q4HP PRN PO 08/15/24 10:00 08/20/24 15:17 1 TAB Apixaban 5 mg BID PO 08/15/24 10:00 08/20/24 10:10 5 MG Saccharomyces Boulardii 250 mg DAILY PO 08/18/24 10:00 08/20/24 10:09 250 MG Bumetanide 1 mg DAILY PO 08/18/24 10:00 08/20/24 10:10 1 MG Loperamide HCl 2 mg Q6HP PRN PO 08/17/24 16:30 08/20/24 13:17 2 MG Laboratory Results Laboratory Tests 08/18/24 06:55 Urinalysis Test 08/08/24 22:28 Urine Color Light-yellow (Yellow) Urine Clarity Clear (Clear) Urine pH 5.5 (5.0-9.0) Urine Specific [place] 1.014 (1.001-1.035) Urine Protein Negative (Negative) Urine Ketones Negative (Negative) Urine Blood 1+ /uL (Negative) H Urine Nitrite Negative (Negative) Urine Bilirubin Negative (Negative) Urine Urobilinogen Normal mg/dL (Negative) Urine Leukocyte Esterase Negative /uL (Negative) Urine RBC 1 /hpf (0 - 3) Urine Microscopic WBC 1 /HPF (0-3) Urine Squamous Epithelial Cells None seen /hpf (<5) Urine Bacteria None seen /hpf (None Seen) Urine Glucose Normal mg/dL (Normal) Microbiology Microbiology Date/Time Source Procedure Growth Status 08/08/24 21:40 Blood Blood Culture - Final NO GROWTH AFTER 5 DAYS OF INCUBATION. Complete Assessment/Plan Assessment/Plan Right leg cellulitis with sepsis. The patient will be placed on broad-spectrum antibiotics to include meropenem and dapto. Morbid obesity. Diabetes mellitus, for which he will be placed on sliding scale insulin. History of hypertension. acute on chronic diastolic heart failure: bumex History of deep venous thrombosis, for which he will be placed on DVT prophylaxis. sleep apnea: bipap Diarrhea: imodium Plan discussed with: Patient Date of Service: Aug 20, 2024 Billing Provider: RANDALL BRADSHWA MD Common Visit Codes: [id number] INP/OBS CARE(HIGH) RANDALL BRADSHAW MD Aug 20, 2024 20:31
[2024-08-21] VITALS (13 sets, daily range): BP systolic 112–137; BP diastolic 55–75; PULSE 87–106; RESP 20–24; TEMP 98.2–98.7; O2SAT 96–100
--- NOTE | 2024-08-21 15:04 | DVHPN2 ---
Progress Note Date Seen: Aug 21, 2024 Medical Necessity Reason Pt with a Central, PICC or Fol: No Subjective Patient reports: No new complaints Review of Systems: HEENT:Normal, CVS:Normal, RESPIRATORY:Normal, GI:Normal, :Normal, MSK:Normal, NEURO:Normal Objective vital signs Vital Sign Date Time Temp Pulse Resp B/P (MAP) Pulse Ox O2 Delivery O2 Flow Rate FiO2 08/21/24 13:14 98.6 93 20 137/61 (86) 98 98.6 08/21/24 08:05 Room Air* 0 21 Total Intake and Output 08/20/24 08/20/24 08/21/24 15:00 23:00 07:00 Intake Total 50 ml 1600 ml 800 ml Output Total 2270 ml 1250 ml Balance 50 ml -670 ml -450 ml medications Current Medications Medications Dose Ordered Sig/Nadia Route Start Time Stop Time Status Last Admin Dose Admin Daptomycin / Sodium Chloride 50 ml @ 100 mls/hr DAILY IV 08/09/24 10:00 UNV Meropenem 50 ml @ 17 mls/hr Q8H IV 08/09/24 08:00 08/21/24 09:01 17 MLS/HR Sodium Chloride 10 ml Q8HR IV 08/09/24 14:00 08/21/24 13:52 10 ML Ondansetron HCl 4 mg Q4HP PRN IV 08/09/24 07:45 08/11/24 21:13 4 MG Docusate Sodium 100 mg BIDPRN PRN PO 08/09/24 07:45 Acetaminophen 650 mg Q6HP PRN PO 08/09/24 07:45 Nitroglycerin 0.4 mg Q5MINP PRN SL 08/09/24 16:45 Potassium Chloride 20 meq DAILY PO 08/11/24 10:00 08/21/24 09:03 20 MEQ Diagnostic Test (Pha) 1 strip ACHS 08/10/24 17:00 08/21/24 11:30 1 STRIP Insulin Human Regular HS SC 08/10/24 22:00 08/19/24 22:00 4 UNITS Insulin Human Regular AC SC 08/10/24 17:00 08/21/24 12:42 2 UNITS Dextrose 50 ml UD PRN IV 08/10/24 11:45 Metoclopramide HCl 10 mg Q6HR PRN IV 08/11/24 00:15 08/18/24 00:41 10 MG Insulin Glargine 10 units HS SC 08/11/24 22:00 08/19/24 22:01 10 UNITS Hydromorphone HCl 1 mg Q4HPRN PRN IV 08/14/24 10:30 08/21/24 09:04 1 MG Acetaminophen/ Hydrocodone Bitart 1 tab Q4HP PRN PO 08/15/24 10:00 08/21/24 12:50 1 TAB Apixaban 5 mg BID PO 08/15/24 10:00 08/21/24 09:02 5 MG Saccharomyces Boulardii 250 mg DAILY PO 08/18/24 10:00 08/21/24 09:03 250 MG Bumetanide 1 mg DAILY PO 08/18/24 10:00 08/21/24 09:02 1 MG Loperamide HCl 2 mg Q6HP PRN PO 08/17/24 16:30 08/21/24 06:43 2 MG Examination: GENERAL:Normal, HEENT:Normal, NECK:Normal, LUNGS:Normal, CVS:Normal, ABDOMEN:Normal, MSK:Normal, MSK:Abnormal (right leg lymphedema), SKIN:Normal, NEURO:Normal, :Normal laboratory and microbiology Laboratory Tests 08/18/24 06:55 Test 08/18/24 06:55 Range/Units Serum Glucose 166 H 74-106 mg/dL Microbiology Date/Time Source Procedure Growth Status 08/08/24 21:40 Blood Blood Culture - Final NO GROWTH AFTER 5 DAYS OF INCUBATION. Complete Problem List/Assessment/Plan Problem List/Assessment/Plan * Right leg cellulitis with sepsis. The patient will be placed on broad-spectrum antibiotics to include meropenem and dapto. * Morbid obesity. * Diabetes mellitus, for which he will be placed on sliding scale insulin. * History of hypertension. * acute on chronic diastolic heart failure: bumex * History of deep venous thrombosis, for which he will be placed on DVT prophylaxis. * sleep apnea: bipap * Diarrhea: imodium advance care planning- full code- time spent 19 mins Plan discussed with: Patient Dietary Evaluation Review Recommendations by RD: Dietary education by RD Comments: 1) Add 60g CCHO restriction to cardiac diet order 2) Refer to outpatient RD/[facility] for weight management 3) Continue to monitor skin integrity Expected Outcomes/Goals: 1) appetite and labs to improve 2) wound to improve Date of Service: Aug 21, 2024 Billing Provider: ALINE GARBER MD Common Visit Codes: [id number] INP/OBS CARE(HIGH) ALINE GARBER MD Aug 21, 2024 15:04
[2024-08-22] VITALS (8 sets, daily range): BP systolic 111–149; BP diastolic 55–88; PULSE 95–108; RESP 16–24; TEMP 97.7–98.6; O2SAT 91–100
--- NOTE | 2024-08-22 12:22 | DVHDS2 ---
Discharge Summary Date of Admission Aug 09, 2024 at 16:23 Date of Discharge: Aug 22, 2024 Labs/Diagnostic Data: Laboratory Results Test 08/22/24 11:34 08/18/24 06:55 08/15/24 09:05 08/11/24 06:53 POC Glucose 195 mg/dl (70-106) White Blood Count 9.8 10^3/uL (4.4-10.8) Red Blood Count 5.05 10^6/uL (4.5-5.90) Hemoglobin 12.6 g/dL (13.5-17.5) Hematocrit 37.9 % (41.0-53.0) Mean Corpuscular Volume 75.0 fL (80.0-100.0) Mean Corpuscular Hemoglobin 25.0 pg (28.0-32.0) Mean Corpuscular Hemoglobin Concent 33.4 g/dL (32.0-36.0) Red Cell Distribution Width 18.3 % (11.8-14.3) Platelet Count 335 10^3/uL (140-450) Mean Platelet Volume 7.6 fL (6.9-10.8) Neutrophils (%) (Auto) 63.8 % (37.0-80.0) Lymphocytes (%) (Auto) 27.7 % (10.0-50.0) Monocytes (%) (Auto) 6.2 % (0.0-12.0) Eosinophils (%) (Auto) 1.4 % (0.0-7.0) Basophils (%) (Auto) 0.9 % (0.0-2.0) Neutrophils # (Auto) 6.3 10 ^3/uL (1.6-8.6) Lymphocytes # (Auto) 2.7 10 ^3/uL (0.4-5.4) Monocytes # (Auto) 0.6 10 ^3/uL (0-1.3) Eosinophils # (Auto) 0.1 10 ^3/uL (0-0.8) Basophils # (Auto) 0.1 10 ^3/uL (0-0.2) Nucleated Red Blood Cells 0.1 % Sodium Level 138 mmol/L (136-145) Potassium Level 3.9 mmol/L (3.5-5.1) Chloride Level 103 mmol/L (98-107) Carbon Dioxide Level 28 mmol/L (20-31) Anion Gap 7 (5-15) Blood Urea Nitrogen 13 mg/dL (9-23) Creatinine 0.78 mg/dL (0.700-1.30) Glomerular Filtration Rate Calc 114 mL/min (>90) BUN/Creatinine Ratio 16.7 (10.0-20.0) Serum Glucose 166 mg/dL (74-106) Calcium Level 9.1 mg/dL (8.7-10.4) Magnesium Level 2.2 mg/dL (1.6-2.6) Differential Total Cells Counted 100.0 (100) Neutrophils % (Manual) 77 (37.0-80.0) Band Neutrophils % (Manual) 7 Lymphocytes % (Manual) 8 (10.0-50.0) Monocytes % (Manual) 6 (0-12) Eosinophils % (Manual) 2 (0-7) Basophils % (Manual) 0 (0.0-2.0) Metamyelocytes % (manual) 0 Myelocytes % (Manual) 0 Promyelocytes % (Manual) 0 Blast Cells % (Manual) 0 Reactive Lymphocytes 0 Platelet Estimate Adequate Hypochromasia (manual) Moderate Microcytosis Slight Ovalocytes Few Hemoglobin A1c 6.9 % A1C (<5.7) Test 08/09/24 10:15 08/08/24 23:48 08/08/24 22:28 08/08/24 21:40 Total Bilirubin 0.8 mg/dL (0.2-1.0) Aspartate Amino Transferase (AST) 35 U/L (13-40) Alanine Aminotransferase (ALT) 27 U/L (7-40) Alkaline Phosphatase 71 U/L (46-116) Total Protein 6.0 g/dL (5.7-8.2) Albumin 3.6 g/dL (3.2-4.8) Lactic Acid Level 3.3 mmol/L (0.4-2.0) Urine Color Light-yellow (Yellow) Urine Clarity Clear (Clear) Urine pH 5.5 (5.0-9.0) Urine Specific [place] 1.014 (1.001-1.035) Urine Protein Negative (Negative) Urine Ketones Negative (Negative) Urine Blood 1+ /uL (Negative) Urine Nitrite Negative (Negative) Urine Bilirubin Negative (Negative) Urine Urobilinogen Normal mg/dL (Negative) Urine Leukocyte Esterase Negative /uL (Negative) Urine RBC 1 /hpf (0 - 3) Urine Microscopic WBC 1 /HPF (0-3) Urine Squamous Epithelial Cells None seen /hpf (<5) Urine Bacteria None seen /hpf (None Seen) Urine Glucose Normal mg/dL (Normal) D-Dimer, Quantitative 3.86 mg/L FEU (0.0-0.49) Other Laboratory Tests 08/18/24 06:55 Brief Hx & Hospital Course: SEE DICTATED NOTE Condition at Discharge: Fair Final Diagnosis/Problems List RIGHT LEG CELLULITIS Discharge Disposition: Assisted Living Facility Discharge Instruct/Medications Diet: Cardiac 2g Na,low cholest Activity: No Restrictions, As Tolerated Follow Up/Referral: FU WITH PCP IN 1 WK Medications: RESUME HOME MEDS SCRIPT TO PHARMACY Discharge Statement: "Patient was advised to return to the ER or call 911 if any headaches, dizziness, shortness of breath, chest pain, abdominal pain, bleeding, fevers, or worsening of medical condition. Patient was counseled about treatment plan, medications, possible side effects, patientverbalized understanding. All questions were answered to the best of my ability. This discharge took greater then 30 minutes in planning, reviewing documentation, counseling the patient, and discussing with other team members." ASSESSMENT ASSESSMENT Assessment RIGHT LEG CELLULITIS Date of Service: Aug 22, 2024 Billing Provider: ALINE GARBER MD Common Visit Codes: [id number] DISCH DAY >30min ALINE GARBER MD Aug 22, 2024 12:22
--- NOTE | 2024-08-22 12:33 | DVHDS ---
DATE OF DISCHARGE: 08/22/2024 HISTORY OF PRESENT ILLNESS: The patient is a 43-year-old gentleman who was admitted with history of increasing redness of right lower extremity and pain going on for several days. He has history of cellulitis of the right leg with lymphedema, diabetes, hypertension and DVT. HOSPITAL COURSE: The patient was placed on antibiotics to include daptomycin along with meropenem. The patient's blood cultures were negative. The patient's cellulitis has since improved. Echocardiogram done showed ejection fraction of 60%. The patient will now be discharged. He was seen in surgical consult by Dr. Juarez. The patient will now be discharged to his assisted living facility to resume his home medications as well as to be on Keflex 500 mg q.i.d. for 10 days. He will follow up with his primary in one week. FINAL DIAGNOSES: Therefore, * Right leg cellulitis with sepsis. * Morbid obesity. * Right leg lymphedema. * Diabetes mellitus. * History of hypertension. * Acute on chronic diastolic heart failure. * History of deep venous thrombosis. * Sleep apnea. Time spent in discharge planning and review of plan with the patient and nursing and social media marketer was 41 minutes. MD PAIGE [place] TID: [id number] RECEIPT: [id number]
[2024-08-22] MEDS ORDERED: CEPH500T PO (12:38)
[2024-08-22] MEDS ORDERED: HYDR-4072 PO (13:03)
== END 2024-08-22 16:02 | disposition home or self-care (01) | DRG 720 ==
LOC: ER 19:48 → EDBD 19:48 → OVERFLOW 08-09 16:23 → ER 08-09 16:23 → CENTRAL 08-09 23:00 → WEST WING 08-15 15:48
PROVIDERS: ADMIT Internal Medicine; ATTEND Internal Medicine
PROC: 05HF33Z Insertion of Infusion Device into Left Cephalic Vein, Percutaneous Approach (ICD-10-PCS; 2024-08-09)
PROC: B54NZZA Ultrasonography of Left Upper Extremity Veins, Guidance (ICD-10-PCS; 2024-08-09)
PROC: 5A09357 Assistance with Respiratory Ventilation, Less than 24 Consecutive Hours, Continuous Positive Airway Pressure (ICD-10-PCS; principal; 2024-08-10)
PROC: 5A09357 Assistance with Respiratory Ventilation, Less than 24 Consecutive Hours, Continuous Positive Airway Pressure (ICD-10-PCS; 2024-08-11)
PROC: 5A09357 Assistance with Respiratory Ventilation, Less than 24 Consecutive Hours, Continuous Positive Airway Pressure (ICD-10-PCS; 2024-08-12)
PROC: 5A09357 Assistance with Respiratory Ventilation, Less than 24 Consecutive Hours, Continuous Positive Airway Pressure (ICD-10-PCS; 2024-08-13)
PROC: 5A09357 Assistance with Respiratory Ventilation, Less than 24 Consecutive Hours, Continuous Positive Airway Pressure (ICD-10-PCS; 2024-08-14)
PROC: 5A09357 Assistance with Respiratory Ventilation, Less than 24 Consecutive Hours, Continuous Positive Airway Pressure (ICD-10-PCS; 2024-08-15)
PROC: 5A09357 Assistance with Respiratory Ventilation, Less than 24 Consecutive Hours, Continuous Positive Airway Pressure (ICD-10-PCS; 2024-08-16)
PROC: 5A09357 Assistance with Respiratory Ventilation, Less than 24 Consecutive Hours, Continuous Positive Airway Pressure (ICD-10-PCS; 2024-08-17)
PROC: 5A09357 Assistance with Respiratory Ventilation, Less than 24 Consecutive Hours, Continuous Positive Airway Pressure (ICD-10-PCS; 2024-08-18)
PROC: 5A09357 Assistance with Respiratory Ventilation, Less than 24 Consecutive Hours, Continuous Positive Airway Pressure (ICD-10-PCS; 2024-08-19)
PROC: 5A09357 Assistance with Respiratory Ventilation, Less than 24 Consecutive Hours, Continuous Positive Airway Pressure (ICD-10-PCS; 2024-08-20)
PROC: 5A09357 Assistance with Respiratory Ventilation, Less than 24 Consecutive Hours, Continuous Positive Airway Pressure (ICD-10-PCS; 2024-08-21)
PROC: 5A09357 Assistance with Respiratory Ventilation, Less than 24 Consecutive Hours, Continuous Positive Airway Pressure (ICD-10-PCS; 2024-08-22)
DX: A41.9 Sepsis, unspecified organism (principal); J96.00 Acute respiratory failure, unspecified whether with hypoxia or hypercapnia; I50.33 Acute on chronic diastolic (congestive) heart failure; L03.115 Cellulitis of right lower limb; E66.01 Morbid (severe) obesity due to excess calories; G47.30 Sleep apnea, unspecified; I89.0 Lymphedema, not elsewhere classified; E11.9 Type 2 diabetes mellitus without complications; I11.0 Hypertensive heart disease with heart failure; R19.7 Diarrhea, unspecified; Z88.1 Allergy status to other antibiotic agents; Z88.2 Allergy status to sulfonamides; Z88.8 Allergy status to other drugs, medicaments and biological substances; Z79.899 Other long term (current) drug therapy; Z88.3 Allergy status to other anti-infective agents; Z79.1 Long term (current) use of non-steroidal anti-inflammatories (NSAID); Z86.718 Personal history of other venous thrombosis and embolism; Z83.3 Family history of diabetes mellitus; Z79.4 Long term (current) use of insulin; Z79.891 Long term (current) use of opiate analgesic; Z68.45 Body mass index [BMI] 70 or greater, adult
CPT/HCPCS: 36415; 80048; 80053; 81001; 82962; 83036; 83605; 83735; 85007; 85025; 85027; 85379; 87040; 93005; 93306; 93971; 94660; 96365; 96367; 96375; 96376; 97110; 97116; 97163; 97530; G0378; J1815; J2003; J2185; J2405